=== PATIENT | female | born 1985 | race Caucasian/White ===

== ENCOUNTER 2020-04-16 14:48 | Emergency (ER) | payer OTHER, SELFPAY ==
--- NOTE | ~2020-04-16 | CT_ITS ---
EXAMINATION: CT abdomen pelvis wo con EXAM DATE: 04/16/2020 16:01 INDICATION: Left-sided flank pain. TECHNIQUE: Spiral CT of the abdomen and pelvis was performed without contrast. Axial, coronal and sag ittal images were reviewed. The dose-length product (DLP) for this examination was 389.32 mGy-cm. T he exposure was tailored according to patient size (auto mA exposure control), and iterative reconstr uction (ASIR) was used as additional dose reduction technique. There is no prior study for compariso n. FINDINGS: There is 2 mm left mid calyceal stone. No ureteral stones or obstructive nephropathy. Punct ate 1 mm right inferior calyceal stone. The uterus is anteverted and morphologically normal. The b ladder is unremarkable. The liver, spleen, adrenal glands and pancreas are unremarkable. Gallbladde r is unremarkable. No biliary obstruction. There is no retroperitoneal or pelvic lymphadenopathy. There are arterial calcifications, arteriosclerosis. The appendix is normal. The stomach and small bowel are unremarkable. There is expected amount of c olonic stool. No free intraperitoneal gas. The heart is normal in size. There are no pericardial or pleural effusions. The lung bases are unremarkable. There are no osteoblastic or osteolytic les ions identified. IMPRESSION: 1. Punctate bilateral nephrolithiasis. 2. No hydronephrosis or other acute intra-abdominal findings. Reviewed, dictated and finalized at location A. L ORGAN PIPE MAKER
[2020-04-16 14:57] VITALS: BP 131/98; PULSE 80; RESP 14; TEMP 36.3; O2SAT 98
[2020-04-16 15:05] LABS: Add Urine Microscopic? YES; Appearance Urine Clear (Clear); Bilirubin Urine Negative (Negative); Blood Urine Negative (Negative); Color Urine Yellow (Yellow); Glucose Urine UA Negative (Negative); Ketones Urine Negative (Negative); Leukocyte Esterase Ur Negative (Negative); Nitrate Urine Negative (Negative); Protein Urine Trace (Negative); Specific Grav Ur 1.025 (1.010-1.020); Urobilinogen Urine 0.2 mg/dL (0.2-1.0)
--- NOTE | 2020-04-16 15:15 | ED.GENADULT ---
HPI - General Adult General Chief complaint: Urogenital-Female Stated complaint: UTI Time Seen by Provider: 04/16/20 14:55 Source: patient Mode of arrival: ambulatory Limitations: no limitations History of Present Illness HPI narrative: Mirna is a 35F with a PMH of recurrent UTI, kidney stones and mood disorder that presented to the ED for concerns of a UTI. Starting a few days ago she had nausea and dry heaving. Later she developed hematuria and dysuria. Today she started to have back pain. It feels like her previous UTIs. It does not feel like her previous stones. She also reports constipation. No fevers, chills, CP, SOB, lightheadedness, hematemesis or anuria. Related Data Home Medications Medication Instructions Recorded Confirmed lorazepam [Ativan] 1 mg PO DAILY PRN 03/13/19 04/16/20 sertraline [Zoloft] 100 mg PO DAILY 03/13/19 04/16/20 tramadol 50 mg PO DAILY 03/13/19 04/16/20 Allergies Allergy/AdvReac Type Severity Reaction Status Date / Time ethinyl estradiol Allergy Intermediate Verified 09/16/18 12:47 [Seasonale (91)] levonorgestrel Allergy Intermediate Verified 09/16/18 12:47 [Seasonale (91)] Review of Systems Constitutional: Constitutional: Denies chills, Reports fatigue and Denies fever(s) Eyes: Eyes: Reports no additional eye complaints ENT: Reports system reviewed and no additional complaints, except as documented Cardiovascular: Cardiovascular: Reports no additional cardiovascular complaints Respiratory: Respiratory: Reports no additional respiratory complaints Gastrointestinal: Gastrointestinal: Reports as per HPI Genitourinary: Genitourinary: Reports as per HPI Musculoskeletal: Musculoskeletal: Reports no additional musculoskeletal complaints Integumentary/Breasts: Skin/Breast: Reports system reviewed and no additional complaints, except as docu Neurologic: Reports system reviewed and no additional complaints, except as documented Psychiatric: Psychiatric: Reports no additional psychiatric complaints Endocrine: Endocrine: Reports no additional endocrine complaints Hematologic/Lymphatic: Hematologic/Lymphatic: Reports no additional hematologic/lymphatic complaints Allergic/Immunologic: Allergic/Immunologic: Reports no additional allergic/immunologic complaints PMFSH Social History Social History Smoking status: Current every day smoker Exam Const: General: no acute distress and alert Orientation/consciousness: patient oriented x3 Limitations: No altered mental status HENMT: Head: normal to inspection Eyes: Conjunctivae: conjunctivae normal Pupils: Equal, round and reactive pupils present Neck: Neck: normal visual inspection Chest: Chest palpation & inspection: normal inspection of the chest Resp: Effort & Inspection: normal respiratory effort Cardio: Rate: regular rate GI: Inspection: non-distended GI Palp: Yes Soft to palpation, No Tenderness to palpation present (GI) and No Guarding due to palpation present (GI) : Other: Bilateral CVA tenderness. Suprapubic tenderness Skin: General skin exam: normal color Rashes: no rashes Neuro: General: patient oriented x3 and moves all extremities Extrem: General: normal to inspection Psych: Appearance: grossly normal Mental Status: mental status grossly normal Thought content: Yes Normal thought content present Course Course Emergency Course: Mirna was evaluated. UA was ordered. UA was unremarkable for infection. Given this workup was expanded and a CT and blood work were ordered. An enema was ordered as she reports that she has not had a BM for 5 days. EXAMINATION: CT abdomen pelvis wo con EXAM DATE: 04/16/2020 16:01 INDICATION: Left-sided flank pain. TECHNIQUE: Spiral CT of the abdomen and pelvis was performed without contrast. Axial, coronal and sagittal images were reviewed. The dose-length product (DLP) for this examination was 389.32 mGy-cm. The exposure was tailored according to pat
[2020-04-16 15:18] LABS: Bacteria Urine 2+ /hpf; RBC Urine 0-2 /hpf (0-2); Squamous Epithelial Cell Urine Many /hpf (Few)
[2020-04-16 15:46] LABS: Pregnancy On Board Control Positive; Urine Pregnancy Test Negative
[2020-04-16 15:55] LABS: Basophils Absolute Auto 0.02 K/mm3 (0.00-0.10); Basophils Percent Auto 0.3 % (0.0-1.0); Eosinophils Absolute Auto 0.09 K/mm3 (0.02-0.50); Eosinophils Percent Auto 1.3 % (1.0-6.0); Hematocrit 40.8 % (35.0-49.0); Hemoglobin 13.3 g/dL (12.0-15.0); Immature Granulocyte Absolute 0.02 K/mm3 (0.00-0.00); Immature Granulocyte Percent A 0.3 % (0.0-0.0); Lymphocytes Absolute Auto 1.45 K/mm3 (1.10-4.50); Lymphocytes Percent Auto 21.7 % (18.0-42.0); Mean Corpuscular HGB Conc 32.6 g/dL (32.0-36.0); Mean Corpuscular Hemoglobin 30.4 pg (27.0-31.0); Mean Corpuscular Volume 93.2 fL (78.0-102.0); Mean Platelet Volume 9.9 fl (9.2-11.8); Monocytes Absolute Auto 0.49 K/mm3 (0.10-0.90); Monocytes Percent Auto 7.3 % (2.0-11.0); Neutrophils Absolute Auto 4.6 K/mm3 (1.7-7.2); Neutrophils Percent Auto 69.1 % (50.0-70.0); Platelet Count Result 262 K/mm3 (150-420); Red Blood Count 4.38 M/mm3 (4.20-5.40); Red Cell Distribution Width 14.2 % (11.6-14.4); White Blood Count 6.7 K/mm3 (4.8-10.8)
[2020-04-16 16:03] LABS: Alanine Aminotransferase 34 U/L (14-59); Albumin Level 3.8 g/dL (3.4-5.0); Alkaline Phosphatase 72 U/L (46-116); Anion Gap 8 mmol/L (8-16); Aspartate Amino Transferase 22 U/L (15-37); Bilirubin,Total 0.3 mg/dL (0.00-1.00); Blood Urea Nitrogen 18 mg/dL (7-18); Carbon Dioxide 25 mmol/L (21-32); Chloride 101 mmol/L (98-108); Estimated CRCL calculation 78 ml/min; Estimated Glomerular Filt Rate > 60; Glucose 93 mg/dL (70-99); Lipase 72 U/L (73-393); Osmolality Calculated 279 mOsm/kg (285-295); Potassium 3.6 mmol/L (3.5-5.1); Sodium 134 mmol/L (136-145); Total Protein 7.7 g/dL (6.4-8.2)
[2020-04-16 16:29] VITALS: RESP 15; O2SAT 100
== END 2020-04-16 16:30 | disposition home or self-care (01) ==
PROVIDERS: Emergency Provider Family Medicine; PCP Family Medicine
DX: N20.0 Calculus of kidney (principal)
CPT/HCPCS: 36415; 74176; 80053; 81001; 81025; 83690; 85025; 99282; 99284

== ENCOUNTER 2021-11-28 17:16 | Emergency (ER) | payer OTHER, SELFPAY ==
--- NOTE | ~2021-11-28 | CT_ITS ---
EXAMINATION: CT brain wo con DATE: 11/28/2021 18:07 INDICATION: head injury dizziness . TECHNIQUE: Computed tomography (CT) of the head was performed without intravenous contrast. The mA wa s adjusted according to patient size. Iterative reconstruction technique was employed. The dose-lengt h product was 605.33 mGy-cm. COMPARISON: None FINDINGS: No acute intracranial hemorrhage or extra-axial fluid collection. No hydrocephalus, mass, or herniation. No acute ischemic infarct. Unremarkable dural venous sinus attenuation. No acute osseous abnormality. The aerated spaces are clear. IMPRESSION: No acute intracranial process. Reviewed, dictated and finalized at location K.
--- NOTE | ~2021-11-28 | XR_ITS ---
EXAM: XR shoulder LT min 2V DATE: 11/28/2021 17:57 HISTORY: shoulder pain . COMPARISON: X-ray chest 03/13/2019. FINDINGS: Normal mineralization. No fracture or dislocation. No lytic or blastic lesion. Joint space s are maintained. No erosion or periosteal change. Soft tissues within normal limits. Left upper lung granuloma. IMPRESSION: No acute osseous finding the left shoulder. Reviewed, dictated and finalized at location K.
[2021-11-28 17:24] VITALS: BP 121/86; PULSE 98; RESP 18; TEMP 36.7; O2SAT 98
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
[2021-11-28] MEDS: KETOROLAC 30 MG/ML VIAL (*BKC) IM (17:43)
--- NOTE | 2021-11-28 18:28 | PC.NURSE ---
PT TO POV TO GET PHONE VERIFICATION ENGINEER AT THIS TIME.
[2021-11-28 19:01] VITALS: BP 118/78; PULSE 80; RESP 16; TEMP 36.7; O2SAT 98
--- NOTE | 2021-11-28 19:01 | PC.NURSE ---
+PMS POST SLING APPLICATION
== END 2021-11-28 19:00 | disposition home or self-care (01) ==
PROVIDERS: Emergency Provider Internal Medicine Critical Care Medicine
DX: S43.402A Unspecified sprain of left shoulder joint, initial encounter (principal); S09.90XA Unspecified injury of head, initial encounter; W19.XXXA Unspecified fall, initial encounter
CPT/HCPCS: 70450; 73030; 96372; 99284; A4565; J1885

== ENCOUNTER 2022-03-08 02:09 | Emergency (ER) | payer OTHER, SELFPAY ==
--- NOTE | ~2022-03-08 | CT_ITS ---
EXAMINATION: CT abdomen pelvis wo con DATE: 03/08/2022 03:07 INDICATION: Difficulty urinating TECHNIQUE: Computed tomography (CT) of the abdomen and pelvis was performed without intravenous contr ast. The dose-length product (DLP) was 171.44 mGy-cm. Automated exposure control and iterative recons truction technique were employed. COMPARISON: 04/16/2020 FINDINGS: The lung bases are clear. The heart size is normal. Punctate calcifications in an otherwise normal spleen likely represent healed granulomatous disease. The liver, pancreas, gallbladder, and a drenal glands are normal. Nonobstructing stones of the left kidney measure up to 3 mm. There is a 2 m m nonobstructing stone of the right kidney lower pole. No stones are identified in the ureters or shirlene dder. There is no hydronephrosis or hydroureter. There is calcified atherosclerosis of the aorta and many of the other arteries. No pathologically enlarged abdominal or pelvic lymph nodes are identified . There is no free intraperitoneal gas or evidence of bowel obstruction. A moderate volume of colonic stool is present. There is mild lumbar spondylosis. IMPRESSION: 1. Nonobstructing bilateral nephrolithiasis. Reviewed, dictated and finalized at location B. LEVELER
[2022-03-08 02:14] VITALS: BP 129/70; PULSE 86; RESP 20; TEMP 36.4; O2SAT 99
--- NOTE | 2022-03-08 02:24 | ED.GENADULT ---
HPI - General Adult General Chief complaint: Urogenital-Female Stated complaint: uti History of Present Illness HPI narrative: Mirna is a 35F with a PMH of recurrent UTI, kidney stones and mood disorder that presented to the ED with a week of bilateral flank pain that radiates down into her pelvis. It is getting worse over the last week and is accompanied by dysuria, hematuria, and nausea. There is no CP, vomiting, syncope, SOB, fevers, chills or vaginal discharge. Related Data Home Medications Medication Instructions Recorded Confirmed No Home Medications 03/08/22 03/08/22 Allergies Allergy/AdvReac Type Severity Reaction Status Date / Time ethinyl estradiol Allergy Intermediate Unknown Verified 11/28/21 17:29 [Seasonale (91)] levonorgestrel Allergy Intermediate Unknown Verified 11/28/21 17:29 [Seasonale (91)] Review of Systems Review of Systems: All systems reviewed & are unremarkable except as noted in HPI and below PMFSH Social History Social History Smoking status: Current every day smoker Exam Const: General: healthy appearing and no acute distress Nutritional Appearance: well nourished Orientation/consciousness: patient oriented x3 HENMT: Head: normal to inspection Ears: external ears normal Face/Nose/Sinus: Normal external nose present Eyes: Conjunctivae: conjunctivae normal Pupils: Equal, round and reactive pupils present Neck: Neck: normal visual inspection Chest: Chest palpation & inspection: normal inspection of the chest Resp: Effort & Inspection: normal respiratory effort Auscultation: clear to auscultation bilaterally Cardio: Rate: regular rate Rhythm: regular rhythm GI: Other: Mild TTP throughout the abdomen but worse in the suprapubic region. Bowel sounds present. No guarding or rebound tenderness. : Other: bilateral CVA tenderness Skin: General skin exam: normal color Neuro: General: patient oriented x3 and moves all extremities Extrem: General: normal to inspection Psych: Mental Status: mental status grossly normal Course Course Emergency Course: CT showed no hydroureteronephrosis. Tinry right loewr pole non-obstructing intrarenal calculus. Further history revealed that she has been quite constipated and last BM was early yesterday Vital Signs Vital signs: Vital Signs Temperature 97.5 F L 03/08/22 02:14 Pulse Rate 86 03/08/22 02:14 Respiratory Rate 20 03/08/22 02:14 Blood Pressure 129/70 03/08/22 02:14 Pulse Oximetry 99 03/08/22 02:14 Oxygen Delivery Room Air 03/08/22 02:14 Temperature 97.9 F 03/08/22 03:33 Pulse Rate 71 03/08/22 03:33 Respiratory Rate 18 03/08/22 03:33 Blood Pressure 120/74 03/08/22 03:33 Pulse Oximetry 99 03/08/22 03:33 Oxygen Delivery BiPAP 03/08/22 03:33 Medical Decision Making Vital Signs Vital Signs: Vital Signs Temperature 97.5 F L 03/08/22 02:14 Pulse Rate 86 03/08/22 02:14 Respiratory Rate 20 03/08/22 02:14 Blood Pressure 129/70 03/08/22 02:14 Pulse Oximetry 99 03/08/22 02:14 Oxygen Delivery Room Air 03/08/22 02:14 Temperature 97.9 F 03/08/22 03:33 Pulse Rate 71 03/08/22 03:33 Respiratory Rate 18 03/08/22 03:33 Blood Pressure 120/74 03/08/22 03:33 Pulse Oximetry 99 03/08/22 03:33 Oxygen Delivery BiPAP 03/08/22 03:33 Lab Data Result diagrams: 03/08/22 02:28 03/08/22 02:28 Labs: Lab Results 03/08/22 03/08/22 03/08/22 Range/Units 02:28 02:28 02:28 WBC 10.3 (4.8-10.8) K/mm3 RBC 4.09 L (4.20-5.40) M/mm3 Hgb 12.4 (12.0-15.0) g/dL Hct 38.7 (35.0-49.0) % MCV 94.6 (78.0-102.0) fL MCH 30.3 (27.0-31.0) pg MCHC 32.0 (32.0-36.0) g/dL RDW 14.3 (11.6-14.4) % Plt Count 261 (150-420) K/mm3 MPV 9.9 (9.2-11.8) fl Immature Gran % (Auto) 0.4 H (0.0-0.0) % Neut % (Auto) 68.9
[2022-03-08 02:32] LABS: Appearance Urine Clear (Clear); Basophils Absolute Auto 0.04 K/mm3 (0.00-0.10); Basophils Percent Auto 0.4 % (0.0-1.0); Bilirubin Urine Negative (Negative); Blood Urine Negative (Negative); Eosinophils Absolute Auto 0.11 K/mm3 (0.02-0.50); Eosinophils Percent Auto 1.1 % (1.0-6.0); Glucose Urine UA Negative (Negative); Hematocrit 38.7 % (35.0-49.0); Hemoglobin 12.4 g/dL (12.0-15.0); Immature Granulocyte Absolute 0.04 K/mm3 (0.00-0.00); Immature Granulocyte Percent A 0.4 % (0.0-0.0); Ketones Urine Negative (Negative); Leukocyte Esterase Ur Trace (Negative); Lymphocytes Absolute Auto 2.35 K/mm3 (1.10-4.50); Lymphocytes Percent Auto 22.8 % (18.0-42.0); Mean Corpuscular Hemoglobin 30.3 pg (27.0-31.0); Mean Corpuscular Volume 94.6 fL (78.0-102.0); Mean Platelet Volume 9.9 fl (9.2-11.8); Monocytes Absolute Auto 0.66 K/mm3 (0.10-0.90); Monocytes Percent Auto 6.4 % (2.0-11.0); Neutrophils Absolute Auto 7.1 K/mm3 (1.7-7.2); Neutrophils Percent Auto 68.9 % (50.0-70.0); Nitrate Urine Negative (Negative); Platelet Count Result 261 K/mm3 (150-420); Protein Urine Negative (Negative); Red Blood Count 4.09 M/mm3 (4.20-5.40); Red Cell Distribution Width 14.3 % (11.6-14.4); Urobilinogen Urine 0.2 mg/dL (0.2-1.0); White Blood Count 10.3 K/mm3 (4.8-10.8)
[2022-03-08] MEDS: SODIUM CHLORIDE 0.9% IV 1,000 ML 999 ML IV CONT (02:35)
[2022-03-08 02:39] LABS: Add Urine Microscopic? YES; Bacteria Urine Trace /hpf; Color Urine Light Yellow (Yellow); RBC Urine 0-2 /hpf (0-2); Squamous Epithelial Cell Urine Few /hpf (Few); WBC Urine 0-3 /hpf (0-3)
[2022-03-08 02:40] LABS: Pregnancy On Board Control Positive; Urine Pregnancy Test Negative
[2022-03-08] MEDS: KETOROLAC 30 MG/ML VIAL (*BKC) IV PUSH (02:42)
[2022-03-08] MEDS: ONDANSETRON INJ 4 MG/2 ML VIAL IV PUSH (02:42)
[2022-03-08] MEDS: MORPHINE SULFATE (*CRX) 4 MG/ML INJ IV PUSH (02:43)
[2022-03-08 02:47] LABS: Alanine Aminotransferase 17 U/L (14-59); Albumin Level 3.5 g/dL (3.4-5.0); Alkaline Phosphatase 62 U/L (46-116); Anion Gap 8 mmol/L (8-16); Aspartate Amino Transferase 11 U/L (15-37); Bilirubin,Total 0.2 mg/dL (0.00-1.00); Blood Urea Nitrogen 13 mg/dL (7-18); Calcium 8.5 mg/dL (8.5-10.1); Carbon Dioxide 28 mmol/L (21-32); Chloride 106 mmol/L (98-108); Estimated CRCL calculation 72 ml/min; Estimated Glomerular Filt Rate > 60; Glucose 109 mg/dL (70-99); Lipase 105 U/L (73-393); Osmolality Calculated 295 mOsm/kg (285-295); Potassium 3.7 mmol/L (3.5-5.1); Sodium 142 mmol/L (136-145); Total Protein 6.7 g/dL (6.4-8.2)
[2022-03-08 03:33] VITALS: BP 120/74; PULSE 71; RESP 18; TEMP 36.6; O2SAT 99
== END 2022-03-08 03:39 | disposition home or self-care (01) ==
PROVIDERS: Emergency Provider Family Medicine
DX: K59.00 Constipation, unspecified (principal)
CPT/HCPCS: 36415; 74176; 80053; 81001; 81025; 83690; 85025; 96361; 96374; 96375; 99284; J1885; J2270; J2405; J7030

== ENCOUNTER 2022-03-24 00:20 | Emergency (ER) | payer OTHER, SELFPAY ==
[2022-03-24] VITALS (7 sets, daily range): BP systolic 120–130; BP diastolic 88–89; PULSE 88–92; RESP 18–20; TEMP 37–37.2; O2SAT 96–99
--- NOTE | ~2022-03-24 | XR_ITS ---
XR shoulder LT min 2V DATE: 03/24/2022 01:09 INDICATION: Left shoulder pain for several months TECHNIQUE: 4 views COMPARISON: 11/28/2021 left shoulder FINDINGS: No fracture or dislocation, periosteal reaction or bone destruction or abnormal soft tissue calcification of the left shoulder. IMPRESSION: Negative Reviewed, dictated and finalized at location A. NESS BANKING REPRESENTATIVE IMPRESSION: Negative
--- NOTE | ~2022-03-24 | XR_ITS ---
XR chest 2V DATE: 03/24/2022 01:09 INDICATION: Shortness of breath for one day TECHNIQUE: PA and lateral views COMPARISON: 03/13/2019 portable AP chest FINDINGS: Normal heart size. No hilar or mediastinal enlargement. 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 No pulmonary infiltrate or consolidation, pleural effusion or pulmonary vascular congestion or pneumo thorax. IMPRESSION: No active cardiopulmonary disease Reviewed, dictated and finalized at location A. ITAL INSURANCE CLERK
--- NOTE | 2022-03-24 00:33 | PC.NURSE ---
old records from fall in november retrieved
--- NOTE | 2022-03-24 00:45 | ECG_ITS ---
Measurements Intervals [place] Rate: 90 P: 40 MO: 127 QRS: 57 QRSD: 85 T: 55 QT: 348 QTc: 426 Interpretive Statements SINUS RHYTHM POSSIBLE LEFT ATRIAL ENLARGEMENT BASELINE ARTIFACT- I, III, AVR, AVL, V1 BORDERLINE ECG NO PREVIOUS ECG AVAILABLE FOR COMPARISON Electronically Signed On 03-24-2022 10:02:38 APPOINTMENT CLERK by Jase Mcghee D.O.
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
[2022-03-24 01:02] LABS: Hemoglobin 13.4 g/dL (12.0-15.0); Mean Corpuscular HGB Conc 32.7 g/dL (32.0-36.0); Mean Corpuscular Hemoglobin 30.4 pg (27.0-31.0); Platelet Count Result 311 K/mm3 (150-420); Red Blood Count 4.41 M/mm3 (4.20-5.40); Red Cell Distribution Width 14.1 % (11.6-14.4); White Blood Count 13.5 K/mm3 (4.8-10.8)
[2022-03-24] MEDS: ALBUTEROL SULFATE NEB 2.5 MG/3 ML INH INHALATION ×2 (01:15→01:53)
[2022-03-24 01:16] LABS: D Dimer 0.46 mg/L (0.19-0.50)
[2022-03-24 01:25] LABS: Alanine Aminotransferase 15 U/L (14-59); Albumin Level 3.9 g/dL (3.4-5.0); Alkaline Phosphatase 83 U/L (46-116); Anion Gap 7 mmol/L (8-16); Aspartate Amino Transferase < 10 U/L (15-37); Bilirubin,Total 0.5 mg/dL (0.00-1.00); Blood Urea Nitrogen 18 mg/dL (7-18); Calcium 9.8 mg/dL (8.5-10.1); Carbon Dioxide 31 mmol/L (21-32); Chloride 102 mmol/L (98-108); Estimated CRCL calculation 70 ml/min; Estimated Glomerular Filt Rate > 60; Glucose 101 mg/dL (70-99); Osmolality Calculated 291 mOsm/kg (285-295); Sodium 140 mmol/L (136-145); Total Protein 8.1 g/dL (6.4-8.2); Troponin I 5.3 ng/L (0.00-60.4)
[2022-03-24] MEDS: KETOROLAC 30 MG/ML VIAL (*BKC) IM (01:26)
[2022-03-24 01:38] LABS: Influenza A QL RT-PCR Negative (Negative); Influenza B QL RT-PCR Negative (Negative); SARS-CoV-2 RNA PCR Negative (Negative)
[2022-03-24 01:39] LABS: RSV RNA, RT-PCR Negative (Negative)
[2022-03-24] MEDS: LORazepam (*CRX) 1 MG TABLET PO (02:00)
--- NOTE | 2022-03-24 02:02 | PC.NURSE ---
while administering ativan patient states I need strong pain medication, not torodal or motrin. Concrete Block Molder said ok, I will let MD come see you & discuss
== END 2022-03-24 02:30 | disposition home or self-care (01) ==
PROVIDERS: Emergency Provider Emergency Medicine
DX: J45.909 Unspecified asthma, uncomplicated (principal); F41.9 Anxiety disorder, unspecified; R07.9 Chest pain, unspecified; Z20.822 Contact with and (suspected) exposure to COVID-19
CPT/HCPCS: 36415; 71046; 73030; 80053; 84484; 85027; 85380; 87637; 93005; 94640; 96372; 99284; A9270; J1885

== ENCOUNTER 2022-04-05 01:16 | Emergency (ER) | payer OTHER, SELFPAY ==
[2022-04-05 01:16] VITALS: BP 137/90; PULSE 90; RESP 20; TEMP 37.2; O2SAT 96
--- NOTE | 2022-04-05 01:21 | ED.EPISTAXIS ---
HPI - Epistaxis General Chief complaint: Epistaxis Stated complaint: Nose Bleed Source: patient and RN notes reviewed Mode of arrival: ambulatory Limitations: no limitations History of Present Illness HPI Narrative: Patient states that she has had some off and on nosebleeds for the last 4-5 days. She has been getting them. I pinch her nose and eventually it stops but she leans her head back and the blood present on the back with throat she spits up clots. She says she has been having some anxiety and then she has a nose bleed. She also feels like she is having some off and on dizzy spells. She was here just 4 days ago and had a normal hemoglobin. MD complaint: epistaxis Location: left nostril Onset (ago): day(s) (4-5) Duration: intermittent Treatment prior to arrival: nose pinching and head tilted back Related Data Allergies Allergy/AdvReac Type Severity Reaction Status Date / Time ethinyl estradiol Allergy Intermediate Unknown Verified 04/03/22 07:12 [Seasonale (91)] levonorgestrel Allergy Intermediate Unknown Verified 04/03/22 07:12 [Seasonale (91)] Review of Systems Review of Systems: All systems reviewed & are unremarkable except as noted in HPI and below Neurologic: Reports dizziness PMFSH Past Medical History Medical History (Updated 04/05/22 @ 01:42 by Robbie Barajas MD) Kidney stones Surgical History Surgical History (Updated 04/05/22 @ 01:37 by Robbie Barajas MD) H/O cystoscopy kidney stone removal Social History Social History Smoking status: Current every day smoker Exam Const: General: healthy appearing, no acute distress and alert Nutritional Appearance: well nourished Orientation/consciousness: patient oriented x3 Limitations: no limitations Other: female nurse in room during examination. HENMT: Head: normal to inspection Ears: external ears normal Face/Nose/Sinus: Epistaxis present on the left anterior source Face and sinus: normal facial exam Mouth: Yes moist mucous membranes Throat: posterior oropharynx normal and uvula midline Eyes: Conjunctivae: conjunctivae normal Pupils: Equal, round and reactive pupils present EOM: EOMs intact bilaterally Neck: Neck: normal visual inspection Resp: Effort & Inspection: normal respiratory effort Auscultation: clear to auscultation bilaterally Cardio: Rate: regular rate Rhythm: regular rhythm GI: GI Palp: Yes Soft to palpation and No Tenderness to palpation present (GI) Auscultation: normal bowel sounds Back/Spine/Pelvis: Cervical Spine: cervical ROM normal Thoracic/Lumbar Spine: thoraco-lumbar ROM normal Skin: General skin exam: normal color Rashes: no rashes Neuro: General: patient oriented x3, moves all extremities, no focal motor deficits and CN's II-XI intact bilaterally Speech: normal speech Gait exam (Neuro): Normal gait present Extrem: General: normal to inspection and no clubbing, cyanosis or edema Psych: Mental Status: mental status grossly normal Affect: normal affect Attitude: cooperative Course Course Emergency Course: Patient asked why she is dizzy I offered her blood work consisting of a CBC and she declined. She said that her hemoglobin was normal just 4 days ago when she was here Procedures Epistaxis Control left: Epistaxis Control Date: 04/05/22 Time Out Performed: Yes Direct Inspection: yes Cautery Used: silver nitrate Patient Tolerated Procedure: no complications Discharge Plan Discharge Clinical Impression: Epistaxis Patient Disposition: Home, Self-Care Condition: Improved Instructions: Nosebleed (ED) Additional Instructions: Use NasoGel small amount every evening on the septum both sides of the nose. Follow-up with your primary care any worsening symptoms. Prescriptions: No Action Proair Digihaler 90 mcg/actuation aero powdr breath act w/sensor 2 inh inhalation QID
[2022-04-05] MEDS: SILVER NITRATE (*SP) STICK 5 EACH (01:41)
[2022-04-05 02:07] VITALS: BP 140/80; PULSE 80; RESP 20; TEMP 36.6; O2SAT 96
== END 2022-04-05 02:00 | disposition home or self-care (01) ==
PROVIDERS: Emergency Provider Emergency Medicine; PCP Family Medicine
DX: R04.0 Epistaxis (principal)
CPT/HCPCS: 30901; 99283

== ENCOUNTER 2022-05-11 20:52 | Emergency (ER) | payer OTHER, SELFPAY ==
--- NOTE | ~2022-05-11 | CT_ITS ---
EXAMINATION: CT abdomen pelvis w con DATE: 05/11/2022 22:28 INDICATION: Lower abdominal pain. History of kidney stones. TECHNIQUE: Computed tomography (CT) of the abdomen and pelvis was performed with 100 CC Omnipaque 350 intravenous contrast. Automated exposure control and iterative reconstruction technique were employe d. Exam dose: 438.43 mGy-cm total exam DLP. COMPARISON: 03/08/2022 CT abdomen pelvis FINDINGS: Calcified right upper lobe pulmonary granuloma. The lung bases are clear of infiltrate or c onsolidation. Normal heart size. No pericardial or pleural effusion. The gallbladder is contracted. No pericholecystic fluid or fat stranding. No bile duct or pancreatic duct dilatation. No hepatic or pancreatic or splenic space-occupying mass lesion. Occasional splenic calcified granulomas. Normal morphology of the adrenal glands. 5 mm upper pole right renal cyst Pinpoint nonobstructing lower pole right renal calculus. 8 mm upper pole left renal cyst. There are a couple of 3 mm smaller left renal calculi.. No ureteral calculus or hydroureteronephrosis. The urinary bladder appears normal. Bilateral prominent adnexal vessels which may be due to pelvic venous congestion. Uterus and adnexal areas are otherwise unremarkable. Normal caliber of the abdominal aorta. No intraperitoneal or retroperitoneal or pelvic mass lesion or adenopathy or ascites. There are nondilated fluid containing small bowel segments. No evidence of appendicitis. There is a p rominent amount of fecal material in the colon but no bowel obstruction is evident. Electronically prominent degenerative disc disease at L5-S1. No suspicious osteolytic or osteoblastic lesions are noted. IMPRESSION: Nonobstructive mild bilateral nephrolithiasis No ureteral calculus or hydroureteronephrosis Normal appendix Reviewed, dictated and finalized at [facility]. Reviewed, dictated and finalized at [facility]. [employer]
[2022-05-11 21:06] VITALS: BP 119/68; PULSE 90; RESP 20; TEMP 36.9; O2SAT 96
--- NOTE | 2022-05-11 21:10 | ED.GENADULT ---
HPI - General Adult General Chief complaint: Unspecified Stated complaint: sharp stomach pains down to knees and up back Related Data Allergies Allergy/AdvReac Type Severity Reaction Status Date / Time ethinyl estradiol Allergy Intermediate Unknown Verified 04/06/22 07:48 [Seasonale (91)] levonorgestrel Allergy Intermediate Unknown Verified 04/06/22 07:48 [Seasonale (91)] PMFSH Past Medical History Medical History Kidney stones Surgical History Surgical History H/O cystoscopy kidney stone removal Social History Social History Smoking status: Current every day smoker Discharge Plan Discharge Prescriptions: No Action Proair Digihaler 90 mcg/actuation aero powdr breath act w/sensor 2 inh inhalation QID 10 Days Qty: 1 0RF Rx Instructions: 2 puffs 4 times a day for 10 days Follow-up/Referrals: Casey Hutson DO [Primary Care Provider] -
--- NOTE | 2022-05-11 21:17 | ED.ABDPAIN ---
HPI - Abdominal Pain General Chief Complaint: Unspecified Stated Complaint: sharp stomach pains down to knees and up back Source: patient Mode of arrival: ambulatory Limitations: no limitations History of Present Illness HPI narrative: 37-year-old female, smoker with a history of constipation, chronic bronchitis presents to the ER with a 2 day history of -- lower abdominal pain. No fever. No nausea /vomiting. No dysuria. The patient is constipated. -- Back pain/neck pain MD elicited complaint: abdominal pain Pertinent past history: constipation Onset (ago): day(s) ( started 2 days ago) Pain Consistency: constant Location: diffuse Severity: moderate Quality: aching Radiation: none Migration to: no migration Exacerbating factors: nothing Relieving factors: nothing Associated symptoms: denies other symptoms Related Data Date of Last Menstrual Period: 04/07/22 Patient : No Allergies Allergy/AdvReac Type Severity Reaction Status Date / Time ethinyl estradiol Allergy Intermediate Unknown Verified 04/06/22 07:48 [Seasonale (91)] levonorgestrel Allergy Intermediate Unknown Verified 04/06/22 07:48 [Seasonale (91)] Review of Systems Review of Systems: All systems reviewed & are unremarkable except as noted in HPI and below Constitutional: Constitutional: Reports as per HPI and Reports no additional constitutional complaints Eyes: Eyes: Reports as per HPI and Reports no additional eye complaints ENT: Reports system reviewed and no additional complaints, except as documented and Reports as per HPI Cardiovascular: Cardiovascular: Reports as per HPI and Reports no additional cardiovascular complaints Respiratory: Respiratory: Reports as per HPI, Reports no additional respiratory complaints and Reports cough Gastrointestinal: Gastrointestinal: Reports as per HPI, Reports no additional gastrointestinal complaints, Reports abdominal pain and Reports constipation Genitourinary: Genitourinary: Reports no additional female genitourinary complaints and Reports as per HPI Musculoskeletal: Musculoskeletal: Reports no additional musculoskeletal complaints and Reports back pain Integumentary/Breasts: Skin/Breast: Reports system reviewed and no additional complaints, except as docu and Reports as per HPI Neurologic: Reports system reviewed and no additional complaints, except as documented and Reports as per HPI Psychiatric: Psychiatric: Reports no additional psychiatric complaints and Reports as per HPI Endocrine: Endocrine: Reports no additional endocrine complaints and Reports as per HPI Hematologic/Lymphatic: Hematologic/Lymphatic: Reports no additional hematologic/lymphatic complaints and Reports as per HPI Allergic/Immunologic: Allergic/Immunologic: Reports no additional allergic/immunologic complaints and Reports as per HPI [facility] Past Medical History Medical History Kidney stones Surgical History Surgical History H/O cystoscopy kidney stone removal Social History Social History Smoking status: Current every day smoker Exam Const: General: no acute distress Nutritional Appearance: well nourished Orientation/consciousness: patient oriented x3 Limitations: no limitations HENMT: Head: normal to inspection Ears: external ears normal Face/Nose/Sinus: Normal external nose present Face and sinus: normal facial exam Mouth: Yes Normal oral and palatal mucosa present Throat: posterior oropharynx normal Eyes: Conjunctivae: conjunctivae normal Pupils: Equal, round and reactive pupils present EOM: EOMs intact bilaterally Direct Ophthalmoscopy: no photophobia Neck: Neck: normal visual inspection, no lymphadenopathy and no meningeal signs Chest: Chest palpation & inspection: normal inspection of the chest Resp: Effort & Inspection:
[2022-05-11 21:32] LABS: Basophils Absolute Auto 0.04 K/mm3 (0.00-0.10); Basophils Percent Auto 0.3 % (0.0-1.0); Eosinophils Absolute Auto 0.03 K/mm3 (0.02-0.50); Eosinophils Percent Auto 0.2 % (1.0-6.0); Hematocrit 38.7 % (35.0-49.0); Hemoglobin 12.5 g/dL (12.0-15.0); Immature Granulocyte Absolute 0.08 K/mm3 (0.00-0.00); Immature Granulocyte Percent A 0.5 % (0.0-0.0); Lymphocytes Absolute Auto 1.88 K/mm3 (1.10-4.50); Mean Corpuscular HGB Conc 32.3 g/dL (32.0-36.0); Mean Platelet Volume 10.5 fl (9.2-11.8); Monocytes Absolute Auto 0.91 K/mm3 (0.10-0.90); Monocytes Percent Auto 5.8 % (2.0-11.0); Neutrophils Absolute Auto 12.8 K/mm3 (1.7-7.2); Neutrophils Percent Auto 81.2 % (50.0-70.0); Platelet Count Result 205 K/mm3 (150-420); Red Blood Count 4.16 M/mm3 (4.20-5.40); White Blood Count 15.7 K/mm3 (4.8-10.8)
[2022-05-11] MEDS: LACTATED RINGERS 1,000 ML 999 ML IV CONT (21:33)
[2022-05-11 21:47] LABS: INR 1.1; Partial Thromboplastin Time 31.1 SEC (23.90-30.70); Prothrombin Time 11.8 Seconds (9.50-12.10)
[2022-05-11 21:48] LABS: SPREG INTERNAL CONTROL Positive; Serum Qual hCG Negative
[2022-05-11 21:56] LABS: Alanine Aminotransferase 19 U/L (14-59); Albumin Level 3.4 g/dL (3.4-5.0); Alkaline Phosphatase 77 U/L (46-116); Anion Gap 7 mmol/L (8-16); Aspartate Amino Transferase 15 U/L (15-37); Bilirubin,Total 0.2 mg/dL (0.00-1.00); Blood Urea Nitrogen 9 mg/dL (7-18); Calcium 8.6 mg/dL (8.5-10.1); Carbon Dioxide 27 mmol/L (21-32); Chloride 97 mmol/L (98-108); Estimated CRCL calculation 86 ml/min; Estimated Glomerular Filt Rate > 60; Glucose 95 mg/dL (70-99); Lipase 23 U/L (16-77); Osmolality Calculated 270 mOsm/kg (285-295); Potassium 3.4 mmol/L (3.5-5.1); Sodium 131 mmol/L (136-145); Total Protein 7.4 g/dL (6.4-8.2); Troponin I < 4.0 ng/L (0.00-60.4)
[2022-05-11 22:00] VITALS: BP 120/66; PULSE 78; RESP 18; O2SAT 98
[2022-05-11 22:08] LABS: Lactic Acid Reflex 0.5 mmol/L (0.4-2.0)
[2022-05-11 22:20] LABS: Influenza A QL RT-PCR Negative (Negative); Influenza B QL RT-PCR Negative (Negative); SARS-CoV-2 RNA PCR Negative (Negative)
[2022-05-11 22:24] LABS: RSV RNA, RT-PCR Negative (Negative)
[2022-05-11] MEDS: ONDANSETRON INJ 4 MG/2 ML VIAL IV PUSH (22:31)
[2022-05-11] MEDS: MORPHINE SULFATE (*CRX) 2 MG/ML INJ IV PUSH (22:31)
[2022-05-11 22:38] LABS: Add Urine Microscopic? YES; Appearance Urine Clear (Clear); Bilirubin Urine Negative (Negative); Blood Urine Negative (Negative); Color Urine Light Yellow (Yellow); Glucose Urine UA Negative (Negative); Ketones Urine Negative (Negative); Leukocyte Esterase Ur Trace LEU/UL (Negative); Nitrate Urine Negative (Negative); Protein Urine Negative (Negative); Urobilinogen Urine 0.2 mg/dL (0.2-1.0)
[2022-05-11 22:40] LABS: Bacteria Urine Trace /hpf; RBC Urine 0-2 /hpf (0-2); Squamous Epithelial Cell Urine Rare /hpf (Few); WBC Urine 0-3 /hpf (0-3)
[2022-05-11 23:03] VITALS: BP 118/69; PULSE 80; RESP 18; TEMP 37.2; O2SAT 96
== END 2022-05-11 23:14 | disposition home or self-care (01) ==
PROVIDERS: Emergency Provider Internal Medicine Critical Care Medicine; PCP Family Medicine
DX: R10.30 Lower abdominal pain, unspecified (principal); M54.50 Low back pain, unspecified; K59.00 Constipation, unspecified; F17.200 Nicotine dependence, unspecified, uncomplicated; Z79.51 Long term (current) use of inhaled steroids; Z20.822 Contact with and (suspected) exposure to COVID-19
CPT/HCPCS: 36415; 74177; 80053; 81001; 83605; 83690; 84484; 84703; 85025; 85610; 85730; 87637; 96361; 96374; 96375; 99284; J2270; J2405; J7120; Q9967

== ENCOUNTER 2022-09-04 23:45 | Emergency (ER) | payer OTHER, SELFPAY ==
--- NOTE | ~2022-09-04 | XR_ITS ---
Supine views of the abdomen Clinical history: Constipation Findings: Bowel gas pattern is nonspecific. Moderate stool noted in the transverse colon. No evidence for obstruction or free air. No abnormal mass lesion or calcification is seen. Osseous structures ar e intact. Impression: Moderate stool in the transverse colon. Reviewed, dictated and finalized at location . Impression: Moderate stool in the transverse colon.
[2022-09-05 13:46] LABS: Occult Blood Negative (Negative)
== END 2022-09-05 02:10 | disposition home or self-care (01) ==
PROVIDERS: Emergency Provider Emergency Medicine
DX: K59.00 Constipation, unspecified (principal); F17.210 Nicotine dependence, cigarettes, uncomplicated; F41.9 Anxiety disorder, unspecified; F32.A Depression, unspecified; I10 Essential (primary) hypertension; Z86.73 Personal history of transient ischemic attack (TIA), and cerebral infarction without residual deficits
CPT/HCPCS: 74018; 82272; 99283

== ENCOUNTER 2022-10-22 09:29 | Emergency (ER) | payer OTHER, SELFPAY ==
--- NOTE | ~2022-10-22 | CT_ITS ---
EXAMINATION: CT abdomen pelvis wo con DATE: 10/22/2022 11:05 INDICATION: Left flank pain TECHNIQUE: Computed tomography (CT) of the abdomen and pelvis was performed without intravenous contr ast. The dose-length product (DLP) was 232.37 mGy-cm. Automated exposure control and iterative recons truction technique were employed. COMPARISON: 05/11/2022 FINDINGS: Small stable nodules of the visualized lung bases are consistent with old granulomatous dis ease. The heart size is normal. Punctate calcifications in an otherwise normal spleen likely represen t healed granulomatous disease. The liver, pancreas, gallbladder, and adrenal glands are normal. Jesus on artifact slightly limits evaluation of the upper abdomen. There is a 2 mm nonobstructing stone of the right kidney lower pole. Nonobstructing stones of the left kidney measure up to 3 mm. No stones a re identified in the ureters or bladder. No hydronephrosis or hydroureter. There is calcified atheros clerosis of the aorta and many of the other arteries, somewhat greater than expected for patient age. No pathologically enlarged abdominal or pelvic lymph nodes are identified. No free intraperitoneal g as or evidence of bowel obstruction. The appendix is normal. There is mild lumbar spondylosis. A mode rate volume of colonic stool is present. IMPRESSION: 1. Nonobstructing bilateral nephrolithiasis. Reviewed, dictated and finalized at location []
[2022-10-22 09:29] VITALS: BP 145/89; PULSE 96; RESP 18; TEMP 36.6; O2SAT 98
--- NOTE | 2022-10-22 09:53 | ED.GENADULT ---
HPI - General Adult General Chief complaint: Back Pain/Injury Stated complaint: back pain Time Seen by Provider: 10/22/22 09:52 History of Present Illness HPI narrative: Healthy 37yo woman history of constipation, recurrent UTIs, and kidney stones, presents with flank pain, left-sided, last 2 weeks. Also radiation into the buttocks and left thigh. No fever or vomiting. No black or bloody stool. Last BM yesterday, hard stools. Hard to initiate voiding of urine; no burning dysuria. Related Data Allergies Allergy/AdvReac Type Severity Reaction Status Date / Time ethinyl estradiol Allergy Intermediate Unknown Verified 10/22/22 09:39 [Seasonale (91)] levonorgestrel Allergy Intermediate Unknown Verified 10/22/22 09:39 [Seasonale (91)] Review of Systems Review of Systems: All systems reviewed & are unremarkable except as noted in HPI and below Constitutional: Constitutional: Denies fever(s) ENT: Denies dysphagia and Denies dizziness Cardiovascular: Cardiovascular: Denies chest pain Respiratory: Respiratory: Denies cough and Denies dyspnea PMF Past Medical History Medical History Kidney stones Surgical History Surgical History H/O cystoscopy kidney stone removal Social History Social History Smoking status: Current every day smoker Exam Const: General: healthy appearing and no acute distress Eyes: Conjunctivae: conjunctivae normal Resp: Effort & Inspection: normal respiratory effort and not labored Cardio: Rate: regular rate GI: Inspection: non-distended GI Palp: Yes Soft to palpation, No Tenderness to palpation present (GI) and No Guarding due to palpation present (GI) Skin: General skin exam: normal color, no jaundice and no pallor Extrem: General: no edema Course Vital Signs Vital signs: Vital Signs Temperature 36.6 C 10/22/22 09:29 Pulse Rate 96 10/22/22 09:29 Respiratory Rate 18 10/22/22 09:29 Blood Pressure 145/89 H 10/22/22 09:29 Pulse Oximetry 98 10/22/22 09:29 Oxygen Delivery Room Air 10/22/22 09:29 Temperature 36.6 C 10/22/22 09:29 Pulse Rate 96 10/22/22 09:29 Respiratory Rate 18 10/22/22 09:29 Blood Pressure 145/89 H 10/22/22 09:29 Pulse Oximetry 98 10/22/22 09:29 Oxygen Delivery Room Air 10/22/22 09:31 Medical Decision Making MDM Narrative Medical decision making narrative: waxing and waning left flank pain with radiation to buttocks and thighs DDx muscle spasm, sciatica, neuroforaminal stenosis, renal colic, cystitis, constipation, indigestion Medical Records Medical records reviewed: Yes I reviewed the external patient's medical records. Vital Signs Vital Signs: Vital Signs Temperature 36.6 C 10/22/22 09:29 Pulse Rate 96 10/22/22 09:29 Respiratory Rate 18 10/22/22 09:29 Blood Pressure 145/89 H 10/22/22 09:29 Pulse Oximetry 98 10/22/22 09:29 Oxygen Delivery Room Air 10/22/22 09:29 Temperature 36.6 C 10/22/22 09:29 Pulse Rate 96 10/22/22 09:29 Respiratory Rate 18 10/22/22 09:29 Blood Pressure 145/89 H 10/22/22 09:29 Pulse Oximetry 98 10/22/22 09:29 Oxygen Delivery Room Air 10/22/22 09:31 Lab Data Lab results reviewed: Yes I reviewed the patient's lab results. Labs: Lab Results 10/22/22 Range/Units 09:53 Urine Color Pending Urine Appearance Pending Urine pH Pending Ur Specific Addison Pending Urine Protein Pending Urine Glucose (UA) Pending Urine Ketones Pending Ur Blood (Man) Pending Urine Nitrate Pending Urine Bilirubin Pending Urine Urobilinogen Pending Leukocyte Esterase Rfl Pending Discharge Plan Discharge Clinical Impression: Acute left flank pain, Acute cystitis without hematuria, Acute left-sided low back pain with left-sided sciatica, Mus
[2022-10-22] MEDS: ACETAMINOPHEN 500 MG TABLET 1000 MG PO (10:15)
[2022-10-22] MEDS: KETOROLAC (*BKC) 60 MG/2 ML VIAL IM (10:18)
[2022-10-22 10:29] LABS: Appearance Urine Cloudy (Clear); Bilirubin Urine Negative (Negative); Blood Urine Negative (Negative); Color Urine Light Yellow (Yellow); Glucose Urine UA Negative (Negative); Ketones Urine Negative (Negative); Leukocyte Esterase Ur Negative LEU/UL (Negative); Nitrate Urine Positive (Negative); Protein Urine Negative (Negative); Urobilinogen Urine 0.2 mg/dL (0.2-1.0); pH Urine 6.5 (5.0-8.0)
[2022-10-22 10:33] LABS: Add Urine Microscopic? YES; Bacteria Urine 4+ /hpf; RBC Urine None seen /hpf (0-2); Squamous Epithelial Cell Urine Few /hpf (Few); WBC Urine None seen /hpf (0-3)
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
[2022-10-22] MEDS: methocarbamoL 500 MG TABLET 1000 MG PO (10:37)
[2022-10-22 10:43] LABS: Pregnancy On Board Control Positive; Urine Pregnancy Test Negative
[2022-10-22 11:25] VITALS: BP 140/70; PULSE 88; RESP 18; O2SAT 98
--- NOTE | 2022-10-25 13:33 | PC.NURSE ---
10/25/22 urine culture completed and pt is on correct antibiotic per Dr Lee no changes made Concha LISA
== END 2022-10-22 11:25 | disposition home or self-care (01) ==
PROVIDERS: Emergency Provider Emergency Medicine
DX: N30.00 Acute cystitis without hematuria (principal); M54.42 Lumbago with sciatica, left side; M62.830 Muscle spasm of back; F17.200 Nicotine dependence, unspecified, uncomplicated
CPT/HCPCS: 74176; 81001; 81025; 87077; 87086; 87088; 87186; 96372; 99284; A9270; J1885

== ENCOUNTER 2022-12-15 15:58 | Emergency (ER) | payer OTHER, SELFPAY ==
[2022-12-15 16:07] VITALS: PULSE 109; RESP 22; TEMP 37.2; O2SAT 98
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
== END 2022-12-15 16:45 | disposition left against medical advice (07) ==
LOC: CHSED 16:55
PROVIDERS: Emergency Provider Emergency Medicine
DX: S09.90XA Unspecified injury of head, initial encounter (principal); T74.11XA Adult physical abuse, confirmed, initial encounter; Y07.010 Husband, current, perpetrator of maltreatment and neglect; F17.200 Nicotine dependence, unspecified, uncomplicated
CPT/HCPCS: 99282

== ENCOUNTER 2023-01-18 19:44 | Emergency (ER) | payer OTHER, SELFPAY ==
--- NOTE | ~2023-01-18 | CT_ITS ---
EXAMINATION: CT abdomen pelvis wo con DATE: 01/18/2023 20:27 INDICATION: Left lower back pain. History of kidney stones. TECHNIQUE: Computed tomography (CT) of the abdomen and pelvis was performed without intravenous contr ast. Automated exposure control and iterative reconstruction technique were employed. Exam dose: 161 .01 mGy-cm total exam DLP. COMPARISON: 10/22/2022 CT abdomen pelvis FINDINGS: The lung bases are clear of infiltrate or consolidation. Normal heart size. No pericardial or pleural effusion. The liver, gallbladder, bile ducts, spleen, pancreas, pancreatic duct, and adrenal glands are unremar kable. An approximately 2 mm nonobstructing lower pole right renal calculus. Approximately [address] nonobstructing mid left renal calculi. No apparent ureteral calculus. No hydroureteronephrosis. The uterus, adnexal areas and urinary bladder appear unremarkable. There is atherosclerotic calcification but normal caliber of the abdominal aorta. No intraperitoneal or retroperitoneal or pelvic mass lesion or adenopathy or ascites is evident. No bowel obstruction, bowel wall thickening, pneumatosis or intraperitoneal free air is detected. No evidence of appendicitis. Moderately severe degenerative disc disease at L4-5 and L5-S1. No suspicious osteolytic or osteoblast ic lesions. IMPRESSION: Mild nonobstructive nephrolithiasis Moderately severe degenerative disc disease at L4-5 and L5-S1 Reviewed, dictated and finalized at [facility]. Reviewed, dictated and finalized at location [facility].
[2023-01-18 19:44] VITALS: BP 138/77; PULSE 72; RESP 20; TEMP 37.2; O2SAT 100
[2023-01-18 19:59] LABS: Appearance Urine Clear (Clear); Bilirubin Urine Negative (Negative); Blood Urine Negative (Negative); Color Urine Yellow (Yellow); Glucose Urine UA Negative (Negative); Ketones Urine Negative (Negative); Leukocyte Esterase Ur Negative LEU/UL (Negative); Nitrate Urine Negative (Negative); Protein Urine Trace (Negative); pH Urine 6.5 (5.0-8.0)
[2023-01-18] MEDS: KETOROLAC 30 MG/ML VIAL (*BKC) IM (20:00)
[2023-01-18 20:08] LABS: Add Urine Microscopic? YES; Bacteria Urine 1+ /hpf; Calcium Oxalate Crystals Urine Present /hpf; Pregnancy On Board Control Positive; RBC Urine 0-2 /hpf (0-2); Squamous Epithelial Cell Urine Few /hpf (Few); Urine Pregnancy Test Negative; WBC Urine 0-3 /hpf (0-3)
[2023-01-18 20:09] LABS: Mucus Urine Rare /lpf
--- NOTE | 2023-01-18 20:09 | ED.GENADULT ---
HPI - General Adult General Chief complaint: Back Pain/Injury Stated complaint: back pain Source: patient Mode of arrival: ambulatory History of Present Illness HPI narrative: 37-year-old white female with history of back pain chronic and bilateral kidney stones. Complains lower back pain has been worse last couple weeks. She wonder she has a kidney stone she has had some difficulty urinating has been constipated on and off. Denies any blood in her stool shortness of breath cough fever difficulty breathing sore throat runny nose. She has been constipated had a small hard stool this morning. Last time she went was couple weeks ago she said. She is eating and drinking fine walking talking seeing hearing without any rash or itching bleeding or bruising dizziness or lightheadedness swelling lumps or bumps or any other complaints. Related Data Allergies Allergy/AdvReac Type Severity Reaction Status Date / Time ethinyl estradiol Allergy Intermediate Unknown Verified 12/15/22 16:36 [Seasonale (91)] levonorgestrel Allergy Intermediate Unknown Verified 12/15/22 16:36 [Seasonale (91)] Review of Systems Review of Systems: All systems reviewed & are unremarkable except as noted in HPI and below [facility] Past Medical History Medical History Kidney stones Surgical History Surgical History H/O cystoscopy kidney stone removal Social History Social History Smoking status: Current every day smoker Exam Narrative: White female patient no apparent distress.? Head normocephalic, atraumatic.? Eyes conjunctiva pink sclera nonicteric.? Extraocular movements are intact.? Ears externally normal.? Oropharynx is clear with moist mucous membranes without exudates.? Neck is supple nontender no lymphadenopathy.? Back is nontender.? negative straight leg raise bilaterally. Lungs are clear.? Heart is regular rate and rhythm without murmurs gallops or rubs.? Chest wall is nontender.? Abdomen is soft and nontender no hepatosplenomegaly or masses no CVA tenderness no abdominal bruits.? Extremities no cyanosis clubbing or edema.? Skin is warm and dry without rashes or lesions.? Neurological patient is alert and oriented x4.? Motor and sensory grossly intact.? Gait is normal. Course Vital Signs Vital signs: Vital Signs Temperature 37.2 C 01/18/23 19:44 Pulse Rate 72 01/18/23 19:44 Respiratory Rate 20 01/18/23 19:44 Blood Pressure 138/77 01/18/23 19:44 Pulse Oximetry 100 01/18/23 19:44 Oxygen Delivery Room Air 01/18/23 19:44 Temperature 37.2 C 01/18/23 21:12 Pulse Rate 80 01/18/23 21:12 Respiratory Rate 20 01/18/23 21:12 Blood Pressure 132/70 01/18/23 21:12 Pulse Oximetry 98 01/18/23 21:12 Oxygen Delivery Room Air 01/18/23 21:12 Medical Decision Making MDM Narrative Medical decision making narrative: Patient Patient is placed in room 3 history and physical were performed. Urine Analysis was obtained. She was sent for a CT abdomen and pelvis without contrast . Patient is given Toradol 30 mg IM Independent Historian: ? Significant other Differential Dx includes but not limited to: degenerative disc disease back strain kidney stone Medications were Reviewed:? ? Medications treatments given: Toradol 10 patient got improvement with this. Independently Interpreted by me:? ? CT and pelvis showed bilateral stones disc disease independently interpreted by me. Ureteral stones are no obstruction? External Source Review:?? Medical conditions/social Situation Impacting Patients Care:?? Shared decision Making:? evaluation was discussed with patient all questions were asked and answered and Patient agreed with the plan. Discussed with ? Clinical impression:? ? Chronic back pain. ? Patient disposition: ? Disch
--- NOTE | 2023-01-18 20:20 | PC.NURSE ---
patient and s/o smell of alcohol & marijuana
[2023-01-18] MEDS: hydrOXYzine HCL 25 MG TABLET PO (20:50)
--- NOTE | 2023-01-18 20:51 | PC.NURSE ---
patient concern amount time for CT results, service writer checked with radiology, 3rd in que for reading. helped reposition and made comfortable for wait
[2023-01-18 21:12] VITALS: BP 132/70; PULSE 80; RESP 20; TEMP 37.2; O2SAT 98
== END 2023-01-18 21:14 | disposition home or self-care (01) ==
PROVIDERS: Emergency Provider Emergency Medicine
DX: M54.50 Low back pain, unspecified (principal); G89.29 Other chronic pain; F17.200 Nicotine dependence, unspecified, uncomplicated
CPT/HCPCS: 74176; 81001; 81025; 96372; 99284; A9270; J1885

== ENCOUNTER 2023-04-18 19:49 | Observation (INO) | payer OTHER, SELFPAY ==
--- NOTE | ~2023-04-18 | CT_ITS ---
EXAMINATION: CT abdomen pelvis wo con DATE: 04/18/2023 20:45 INDICATION: BILAT FLANK PAIN/HX OF STONES TECHNIQUE: Computed tomography (CT) of the abdomen and pelvis was performed without intravenous contr ast. Automated exposure control and iterative reconstruction technique were employed. The dose-length product was 409.73 mGy-cm. COMPARISON: 01/18/2023. FINDINGS: Lower thorax: Coronary artery calcification. Granulomatous disease. Liver: Normal. Biliary/Gallbladder: Gallbladder is normal. No bile duct dilation. Pancreas: No mass or duct dilation. Spleen: Normal. Adrenals:No mass. Kidneys: No suspicious mass. No hydronephrosis. 2 mm and 3 mm left midpole calcifications. 2 mm right lower pole calcification. GI tract: Mild gastric distention. Dilation of multiple fluid-filled loops of upper and mid small bow el, no transition point. Normal appendix. Mesentery/Peritoneum: Prominent upper mesenteric lymph nodes with surrounding stranding. Retroperitoneum: No mass. Atherosclerotic abdominal aortic and/or arterial calcifications. Pelvis: Pelvic organs are within normal limits. Soft Tissues: Soft tissues and body wall unremarkable. Bones: No acute osseous finding. IMPRESSION: Coronary artery calcification, greater than expected for age. Small bowel ileus. Early/partial obstruction not excluded. Mesenteric panniculitis. Bilateral nephrolithiasis. No CT evidence of obstructive uropathy. Reviewed, dictated and finalized at location [facility]. [employer]
--- NOTE | ~2023-04-18 | XR_ITS ---
EXAMINATION: XR abdomen/kub 1V INDICATION: Ileus versus obstruction TECHNIQUE: Supine view of the abdomen is obtained. COMPARISON: CT from yesterday FINDINGS: No definitely dilated loops of bowel are identified. The small bowel is relatively gasless which can be seen in the setting of fluid-filled bowel which would obscure assessment for obstruction on the supine radiograph. Gas is present in the large bowel. No free intraperitoneal gas is identifi ed. IMPRESSION: 1. No dilated loops of bowel seen although gasless small bowel limits assessment. Reviewed, dictated and finalized at location [facility]. TESTER IMPRESSION: 1. No dilated loops of bowel seen although gasless small bowel limits assessmen tLea
[2023-04-18 19:49] VITALS: BP 127/77; PULSE 100; RESP 20; TEMP 37.1; O2SAT 99
[2023-04-18] MEDS: SODIUM CHLORIDE 0.9% IV 1,000 ML 999 ML IV CONT (20:20)
[2023-04-18 20:22] LABS: Basophils Absolute Auto 0.02 K/mm3 (0.00-0.10); Basophils Percent Auto 0.2 % (0.0-1.0); Eosinophils Absolute Auto 0.07 K/mm3 (0.02-0.50); Eosinophils Percent Auto 0.7 % (1.0-6.0); Hematocrit 39.8 % (35.0-49.0); Hemoglobin 12.7 g/dL (12.0-15.0); Immature Granulocyte Absolute 0.04 K/mm3 (0.00-0.00); Immature Granulocyte Percent A 0.4 % (0.0-0.0); Lymphocytes Absolute Auto 0.56 K/mm3 (1.10-4.50); Lymphocytes Percent Auto 5.7 % (18.0-42.0); Mean Corpuscular HGB Conc 31.9 g/dL (32.0-36.0); Mean Corpuscular Hemoglobin 30.2 pg (27.0-31.0); Mean Corpuscular Volume 94.8 fL (78.0-102.0); Mean Platelet Volume 10.7 fl (9.2-11.8); Platelet Count Result 206 K/mm3 (150-420); Red Cell Distribution Width 14.2 % (11.6-14.4); White Blood Count 9.9 K/mm3 (4.8-10.8)
[2023-04-18] MEDS: KETOROLAC 30 MG/ML VIAL (*BKC) IV PUSH (20:22)
[2023-04-18 20:23] LABS: Appearance Urine Clear (Clear); Bilirubin Urine Negative (Negative); Blood Urine Negative (Negative); Color Urine Light Yellow (Yellow); Glucose Urine UA Negative (Negative); Ketones Urine Negative (Negative); Leukocyte Esterase Ur Negative LEU/UL (Negative); Nitrate Urine Negative (Negative); Protein Urine Negative (Negative); Urobilinogen Urine 0.2 mg/dL (0.2-1.0)
[2023-04-18] MEDS: ONDANSETRON INJ 4 MG/2 ML VIAL IV PUSH (20:23)
[2023-04-18 20:24] LABS: Add Urine Microscopic? NO
[2023-04-18 20:28] LABS: Pregnancy On Board Control Positive; Urine Pregnancy Test Negative
[2023-04-18 20:37] LABS: INR 0.9; Prothrombin Time 10.4 Seconds (9.50-12.10)
[2023-04-18 20:42] LABS: Lactic Acid Reflex 0.9 mmol/L (0.4-2.0)
[2023-04-18 20:51] LABS: Alanine Aminotransferase 22 U/L (14-59); Albumin Level 3.3 g/dL (3.4-5.0); Alkaline Phosphatase 61 U/L (46-116); Anion Gap 8 mmol/L (8-16); Aspartate Amino Transferase 27 U/L (15-37); Bilirubin,Total 0.2 mg/dL (0.00-1.00); Blood Urea Nitrogen 16 mg/dL (7-18); Calcium 7.7 mg/dL (8.5-10.1); Carbon Dioxide 26 mmol/L (21-32); Chloride 103 mmol/L (98-108); Estimated CRCL calculation 83 ml/min; Estimated Glomerular Filt Rate > 60; Glucose 108 mg/dL (70-99); Lipase 36 U/L (16-77); Osmolality Calculated 286 mOsm/kg (285-295); Potassium 3.8 mmol/L (3.5-5.1); Sodium 137 mmol/L (136-145); Total Protein 6.6 g/dL (6.4-8.2)
--- NOTE | 2023-04-18 21:11 | ED.ABDPAIN ---
HPI - Abdominal Pain General Chief Complaint: Back Pain/Injury Stated Complaint: passing kidney stone Time Seen by Provider: 04/18/23 19:52 Source: patient and family Mode of arrival: ambulatory History of Present Illness HPI narrative: This is 38-year-old female with past medical history of nephrolithiasis, presents with some abdominal pain and flank pain pain is in the periumbilical area and wraps around into her bilateral with no dysuria no suprapubic pain or tenderness no hematuria no fever chills, currently no nausea or vomiting. MD elicited complaint: abdominal pain Onset (ago): hour(s) Pain Consistency: constant Severity: moderate Quality: aching and fullness Migration to: periumbilical, suprapubic, L flank and R flank Related Data Home Medications Medication Instructions Recorded Confirmed prazosin 1 mg capsule 1 mg PO DAILY 04/18/23 04/18/23 trazodone 50 mg tablet 50 mg PO HS 04/18/23 04/18/23 Allergies Allergy/AdvReac Type Severity Reaction Status Date / Time ethinyl estradiol Allergy Intermediate Unknown Verified 04/18/23 20:39 [Seasonale (91)] levonorgestrel Allergy Intermediate Unknown Verified 04/18/23 20:39 [Seasonale (91)] Review of Systems Review of Systems: All systems reviewed & are unremarkable except as noted in HPI and below PMFSH Past Medical History Medical History Kidney stones Surgical History Surgical History H/O cystoscopy kidney stone removal Social History Social History Smoking status: Current every day smoker Exam Const: General: no acute distress Nutritional Appearance: well nourished Orientation/consciousness: patient oriented x3 Limitations: no limitations Neck: Neck: normal visual inspection and no lymphadenopathy Chest: Chest palpation & inspection: normal inspection of the chest Resp: Effort & Inspection: normal respiratory effort Auscultation: clear to auscultation bilaterally Cardio: Rate: regular rate Rhythm: regular rhythm GI: GI Palp: Yes Soft to palpation Auscultation: normal bowel sounds Back/Spine/Pelvis: Back: CVA tenderness Skin: General skin exam: normal color Rashes: no rashes Neuro: General: patient oriented x3 and moves all extremities Extrem: General: normal to inspection Course Course Emergency Course: Patient with pain and flank pain received IV fluids, received IV Toradol 30mg, and after reassessment patient states that it did relieve her pain slightly, will administer a dose of morphine 4mg IV, labs reviewed and no significant abnormalities, CT scan shows a small bowel ileus, vitals are stable patient's white count is normal currently no vomiting. Will admit the patient for observation keep patient NPO and pain control. Vital Signs Vital signs: Vital Signs Temperature 37.1 C 04/18/23 19:49 Pulse Rate 100 04/18/23 19:49 Respiratory Rate 20 04/18/23 19:49 Blood Pressure 127/77 04/18/23 19:49 Pulse Oximetry 99 04/18/23 19:49 Oxygen Delivery Room Air 04/18/23 19:49 Temperature 37.1 C 04/18/23 19:49 Pulse Rate 100 04/18/23 19:49 Respiratory Rate 20 04/18/23 19:49 Blood Pressure 127/77 04/18/23 19:49 Pulse Oximetry 99 04/18/23 19:49 Oxygen Delivery Room Air 04/18/23 19:49 MDM - Abdominal Pain Lab Data 04/18/23 20:18 04/18/23 20:18 Labs: Lab Results 04/18/23 Range/Units 20:18 WBC 9.9 (4.8-10.8) K/mm3 RBC 4.20 (4.20-5.40) M/mm3 Hgb 12.7 (12.0-15.0) g/dL Hct 39.8 (35.0-49.0) % MCV 94.8 (78.0-102.0) fL MCH 30.2 (27.0-31.0) pg MCHC 31.9 L (32.0-36.0) g/dL RDW 14.2 (11.6-14.4) % Plt Count 206 (150-420) K/mm3 MPV 10.7 (9.2-11.8) fl Immature Gran % (Auto) 0.4 H (0.0-0.0) % Neut % (Auto) 91.0 H (50.0-70.0) % Lymph % (Auto)
[2023-04-18 21:21] VITALS: O2SAT 96
[2023-04-18] MEDS: MORPHINE SULFATE (*CRX) 4 MG/ML INJ IV PUSH (21:29)
[2023-04-18] MEDS: CALCIUM CHLOR 1,000MG/100ML NS 1,000 MG/100 ML BAG 100 MG IVPB (21:51)
[2023-04-18] MEDS: SODIUM CHLORIDE 0.9% IV 1,000 ML 100 ML IV CONT (21:54)
[2023-04-18] MEDS: SODIUM CHLORIDE 0.9% IV 100 ML (22:08)
[2023-04-18] MEDS: LORazepam INJ (*CRX) 2 MG/ML VIAL 0.5 MG IV PUSH (22:46)
[2023-04-19] VITALS: BP 110/88; PULSE 85; RESP 20; TEMP 36.7; O2SAT 95
[2023-04-19] MEDS: MORPHINE SULFATE (*CRX) 2 MG/ML INJ IV PUSH ×2 (02:09→07:38)
--- NOTE | 2023-04-19 02:16 | ADMGEN ---
This patient, Mirna Rojas, was admitted to 2nd Floor Room 202-1. Patient oriented to hospital policies and general routines including ID bracelet, bed and alarms, visiting hours, pain management, procedures, bathroom and other care routines, personal items, smoking policy, room service/diet, and visiting hours. Information on how to activate the Rapid Response Team has been discussed. Patient are encouraged to report perceived risks to care and to ask questions if they do not understand what they are told or what they should do.
--- NOTE | 2023-04-19 05:47 | PC.NURSE ---
Pt walked to the [facility] w/IV fluids and pole. This RN asked the pt what she was attempting to do. The pt aggressively stated she was going to smoke. This RN reminded the pt that this is discouraged and against hospital rules, but pt was adamant about smoking her cigarette stating I'm not asking permission, I'm going. This RN then disconnected her IV tubing and walked w/the pt along w/ Aman from security outside to supervise pt to make sure she did not fall, get lost, or leave independently. After pt smoked her cigarette the pt stated that an ED RN had communicated to her that she was allowed to smoke. This RN communicated to the pt that they may be the case for some facilities, but not this one. Once pt and RN arrived back to 2nd floor Amy Figueredo RN communicated the option of leaving AMA and explained again to the pt that going outside to smoke is not tolerated. Amy told the pt that an order for a nicotine patch can be put in, and pt was agreeable to that. Pt is currently back in her room.
--- NOTE | 2023-04-19 05:50 | PC.NURSE ---
Dr. Lee notified of pt leaving the building to smoke. Orders received and noted for a nicotene patch 21 mg.
[2023-04-19 05:58] LABS: Basophils Absolute Auto 0.03 K/mm3 (0.00-0.10); Basophils Percent Auto 0.4 % (0.0-1.0); Eosinophils Absolute Auto 0.05 K/mm3 (0.02-0.50); Eosinophils Percent Auto 0.7 % (1.0-6.0); Hematocrit 36.8 % (35.0-49.0); Hemoglobin 11.7 g/dL (12.0-15.0); Immature Granulocyte Absolute 0.05 K/mm3 (0.00-0.00); Immature Granulocyte Percent A 0.7 % (0.0-0.0); Lymphocytes Absolute Auto 0.84 K/mm3 (1.10-4.50); Lymphocytes Percent Auto 11.9 % (18.0-42.0); Mean Corpuscular HGB Conc 31.8 g/dL (32.0-36.0); Mean Corpuscular Hemoglobin 30.2 pg (27.0-31.0); Mean Corpuscular Volume 95.1 fL (78.0-102.0); Monocytes Absolute Auto 0.26 K/mm3 (0.10-0.90); Monocytes Percent Auto 3.7 % (2.0-11.0); Neutrophils Absolute Auto 5.8 K/mm3 (1.7-7.2); Neutrophils Percent Auto 82.6 % (50.0-70.0); Platelet Count Result 178 K/mm3 (150-420); Red Blood Count 3.87 M/mm3 (4.20-5.40); Red Cell Distribution Width 14.3 % (11.6-14.4); White Blood Count 7.1 K/mm3 (4.8-10.8)
[2023-04-19 06:18] LABS: Alanine Aminotransferase 18 U/L (14-59); Albumin Level 2.9 g/dL (3.4-5.0); Alkaline Phosphatase 53 U/L (46-116); Anion Gap 7 mmol/L (8-16); Aspartate Amino Transferase 10 U/L (15-37); Bilirubin,Total 0.2 mg/dL (0.00-1.00); Blood Urea Nitrogen 12 mg/dL (7-18); Calcium 7.9 mg/dL (8.5-10.1); Carbon Dioxide 24 mmol/L (21-32); Chloride 104 mmol/L (98-108); Estimated CRCL calculation 102 ml/min; Estimated Glomerular Filt Rate > 60; Glucose 104 mg/dL (70-99); Magnesium 1.7 mg/dL (1.8-2.4); Osmolality Calculated 279 mOsm/kg (285-295); Potassium 3.6 mmol/L (3.5-5.1); Sodium 135 mmol/L (136-145); Total Protein 5.9 g/dL (6.4-8.2)
[2023-04-19] MEDS: NICOTINE (*PBKC) 21 MG PATCH 1 PATCH TRANSDERM (07:41)
[2023-04-19 08:00] VITALS: BP 128/79; PULSE 83; RESP 20; TEMP 36.1; O2SAT 99
[2023-04-19] MEDS: SODIUM CHLORIDE 0.9% IV 1,000 ML 100 ML IV CONT (09:25)
[2023-04-19] MEDS: PANTOPRAZOLE SODIUM IV 40 MG VIAL IV PUSH (09:26)
--- NOTE | 2023-04-19 10:04 | PM.IMHP ---
H&P: HPI History of Present Illness Date/Time: 04/19/23 10:04 [facility] Past Medical History Medical History Kidney stones Surgical History Surgical History H/O cystoscopy kidney stone removal Social History Social History Years smoked: 30 Smoking status: Current every day smoker Tobacco type: cigarettes Alcohol intake: never Substance use: never Do You Feel Safe in your Home?: Yes Lack of Transportation: No Lack of Food: Never True Current Housing: I Have Housing Concerned About Future Housing: No Difficulty Paying Gas/Electric Bills: No Difficulty Paying for Meds: No Currently Unemployed: No Education: Bachelor's Degree Difficulty w/ Childcare or Family Care: No Spiritual care concerns: No Meds Home Medications and Allergies Home Medications Medication Instructions Recorded Confirmed Type prazosin 1 mg capsule 1 mg PO DAILY 04/18/23 04/18/23 History trazodone 50 mg tablet 50 mg PO HS 04/18/23 04/18/23 History Allergies Allergy/AdvReac Type Severity Reaction Status Date / Time ethinyl estradiol Allergy Intermediate Unknown Verified 04/18/23 20:39 [Seasonale (91)] levonorgestrel Allergy Intermediate Unknown Verified 04/18/23 20:39 [Seasonale (91)] Vital Signs Vital Signs - 24 hr 04/18/23 19:49 04/18/23 21:21 04/19/23 00:00 Temperature 37.1 C 36.7 C Pulse Rate 100 85 Respiratory Rate 20 20 Blood Pressure 127/77 110/88 Pulse Oximetry 99 96 95 Oxygen Delivery Room Air Room Air Room Air 04/19/23 08:00 Temperature 36.1 C L Pulse Rate 83 Respiratory Rate 20 Blood Pressure 128/79 Pulse Oximetry 99 Oxygen Delivery Room Air H&P: Results Labs Labs: Short CBC 04/18/23 04/19/23 Range/Units 20:18 05:22 WBC 9.9 7.1 (4.8-10.8) K/mm3 Hgb 12.7 11.7 L (12.0-15.0) g/dL Hct 39.8 36.8 (35.0-49.0) % Plt Count 206 178 (150-420) K/mm3 BMP 04/18/23 04/19/23 20:18 05:22 Sodium 137 135 L Potassium 3.8 3.6 Chloride 103 104 Carbon Dioxide 26 24 BUN 16 12 Creatinine 0.65 0.58 Glucose 108 H 104 H Calcium 7.7 L 7.9 L Liver Function 04/18/23 04/19/23 Range/Units 20:18 05:22 Total Bilirubin 0.2 0.2 (0.00-1.00) mg/dL AST 27 10 L (15-37) U/L ALT 22 18 (14-59) U/L Alkaline Phosphatase 61 53 (46-116) U/L Albumin 3.3 L 2.9 L (3.4-5.0) g/dL Urine 04/18/23 Range/Units 20:18 Urine Color Light yellow (Yellow) Urine Appearance Clear (Clear) Urine pH 6.0 (5.0-8.0) Ur Specific [place] 1.020 (1.010-1.020) Urine Protein Negative (Negative) Urine Glucose (UA) Negative (Negative)
[2023-04-19] MEDS: polyethylene glycoL 3350 17 GM POWD.PACK PO (11:11)
--- NOTE | 2023-04-19 12:49 | PM.SD2 ---
Same Day Admit/Disch: HPI History of Present Illness Chief complaint: passing kidney stone Narrative: Mirna Rojas is a 38 year old female Who presented to the emergency department complaining of back complaint pain concern for passing a kidney stone. Patient has a history of chronic constipation, psychiatric illness and she was recently discharged from inpatient drug rehab. Patient was very agitated this morning about not being able to smoke and her psychiatric medications were not sent to pharmacy when she was discharged from [facility] in [place]. Patient reports she was on Zoloft 100 mg daily, prazosin 1 mg daily, trazodone 50 mg HS, hydroxyzine PRN, Flexeril PRN, tramadol PRN. Patient reports that she was frustrated being kept NPO and not receiving Miralax twice a day as she does at home. We explained that concern for ileus/partial obstruction was reason for NPO orders. We will start clears and give Miralax, advance diet as tolerated. Patient reports that her pain is under control at this time but her anxiety/agitation is elevated. Restarted majority of reported medications. Will see how she tolerates. [facility] Past Medical History Medical History (Updated 04/19/23 @ 13:41 by Onur Knox APRN) Anxiety and depression Chronic back pain Chronic constipation Kidney stones Surgical History Surgical History H/O cystoscopy kidney stone removal Social History Social History Years smoked: 30 Smoking status: Current every day smoker Tobacco type: cigarettes Alcohol intake: never Substance use: never Do You Feel Safe in your Home?: Yes Lack of Transportation: No Lack of Food: Never True Current Housing: I Have Housing Concerned About Future Housing: No Difficulty Paying Gas/Electric Bills: No Difficulty Paying for Meds: No Currently Unemployed: No Education: Bachelor's Degree Difficulty w/ Childcare or Family Care: No Spiritual care concerns: No Same Day Admit/Disch: Med Pre-admit Medications Home Medications Medication Instructions Recorded Confirmed Type hydroxyzine HCl 25 mg tablet 50 mg PO Q6H PRN Anxiety #20 tabs 04/19/23 Rx nicotine 21 mg/24 hr daily 1 patch transdermal DAILY #30 ea 04/19/23 Rx transdermal patch (Nicoderm CQ) polyethylene glycol 3350 17 gram 17 g PO Q12HR #60 ea 04/19/23 Rx oral powder packet (Miralax) prazosin 1 mg capsule 1 mg PO HS #30 caps 04/19/23 Rx sertraline 50 mg tablet (Zoloft) 100 mg PO QAM #30 tabs 04/19/23 Rx trazodone 50 mg tablet 50 mg PO HS #30 tabs 04/19/23 Rx Review of Systems Review of Systems All systems reviewed & are unremarkable except as noted in HPI and below Exam Narrative: GENERAL: Well-appearing, well-nourished, and in no acute distress. HEAD: Normocephalic, atraumatic. ENT:? Mucous membranes moist. CHEST: Clear to auscultation.? No respiratory distress. HEART: Regular rate and rhythm. ? Normal peripheral pulses. ABDOMEN: Soft, nontender, nondistended. EXTREMITIES: Normal range of motion. No peripheral edema. SKIN: Warm dry normal color NEURO: Alert and oriented x3. PSYCH: moderately agitated/anxious DS: Data Data Completed and Pending Completed studies during hospitalization: abdomen pelvis CT, KUB Labs on day of discharge: Labs from last 24 hours 04/19/23 04/18/23 05:22 20:18 WBC 7.1 9.9 RBC 3.87 L 4.20 Hgb 11.7 L 12.7 Hct 36.8 39.8 MCV 95.1 94.8 MCH 30.2 30.2 MCHC 31.8 L 31.9 L RDW 14.3 14.2 Plt Count 178 206 MPV 11.0 10.7 Immature Gran % (Auto) 0.7 H 0.4 H Neut % (Auto) 82.6 H 91.0 H Lymph % (Auto) 11.9 L 5.7 L [place] % (Auto) 3.7 2.0 Eos % (Auto) 0.7 L 0.7 L Baso % (Auto) 0.4 0.2 Lymph # (Auto) 0.84 L 0.56 L [place] # (Auto) 0.26 0.20 Eos # (Auto) 0.05 0.07 Baso # (Auto) 0.03 0.02 Abs Immat Gr
--- NOTE | 2023-04-19 13:14 | PC.NURSE ---
Pt was walking in the room talking on phone. Pt then went down elevator and is sitting out front. Patient had been notified by multiple staff that she was not to go outside.
--- NOTE | 2023-04-19 14:08 | PC.NURSE ---
Pt walked to front door without difficulty. Waiting for ride.
--- NOTE | 2023-04-19 14:13 | PCCCNOTE ---
Pt discharged prior to giving her the Advance Directive form.
--- NOTE | 2023-04-23 08:57 | PC.NURSE ---
Discharge call back attempted, no answer
--- NOTE | 2023-04-24 10:27 | PC.NURSE ---
Unable to complete discharge call back no answer
--- NOTE | 2023-04-25 09:10 | PC.NURSE ---
Discharge call back unsuccessful x3 attempts, goes straight to voicemail
== END 2023-04-19 14:00 | disposition home or self-care (01) ==
LOC: CHSED 21:17 → CHS2ND 21:27
PROVIDERS: Admitting Provider Internal Medicine; Emergency Provider Emergency Medicine; Visit Provider Internal Medicine
DX: K56.7 Ileus, unspecified (principal); K59.09 Other constipation; I25.10 Atherosclerotic heart disease of native coronary artery without angina pectoris; K65.4 Sclerosing mesenteritis; M54.9 Dorsalgia, unspecified; G89.29 Other chronic pain; F41.9 Anxiety disorder, unspecified; F17.210 Nicotine dependence, cigarettes, uncomplicated; F32.A Depression, unspecified; Z79.899 Other long term (current) drug therapy; Z87.442 Personal history of urinary calculi
CPT/HCPCS: 36415; 74018; 74176; 80053; 81003; 81025; 83605; 83690; 83735; 85025; 85610; 85730; 96361; 96365; 96374; 96375; 96376; 99285; A9270; C9113; G0378; G0379; J1885; J2060; J2270; J2405; J7030

== ENCOUNTER 2023-05-04 21:27 | Emergency (ER) | payer OTHER, SELFPAY ==
[2023-05-04 21:27] VITALS: BP 138/87; PULSE 89; RESP 18; TEMP 36.3; O2SAT 98
[2023-05-04] MEDS: AMOXICILLIN 500 MG CAPSULE PO (21:42)
[2023-05-04] MEDS: LIDOCAINE HCL 1% LOCAL INJ 10 ML VIAL INFILTRATE (21:42)
--- NOTE | 2023-05-04 21:44 | ED.GENADULT ---
HPI - General Adult General Chief complaint: Unspecified Stated complaint: tooth pain Time Seen by Provider: 05/04/23 21:31 Source: patient Mode of arrival: ambulatory Limitations: no limitations History of Present Illness HPI narrative: this is a 38-year-old female that presents dental pain is scheduled to see a dentist but has been having upper dental pain bilaterally and dry socket area and cracked tooth area with no fever chills pain level about an 8/10 has been trying [id number] medication with minimal relief. There is no submandibular gland inflammation or tenderness no nausea vomiting no shortness of breath no fever chills. Onset (ago): day(s) Location: mouth Severity: severe Severity scale (1-10): 8 Related Data Allergies Allergy/AdvReac Type Severity Reaction Status Date / Time ethinyl estradiol Allergy Intermediate Unknown Verified 05/04/23 21:31 [Seasonale (91)] levonorgestrel Allergy Intermediate Unknown Verified 05/04/23 21:31 [Seasonale (91)] Review of Systems Review of Systems: All systems reviewed & are unremarkable except as noted in HPI and below PMFSH Past Medical History Medical History Anxiety and depression Chronic back pain Chronic constipation Kidney stones Surgical History Surgical History H/O cystoscopy kidney stone removal Social History Social History Years smoked: 30 Smoking status: Current every day smoker Tobacco type: cigarettes Alcohol intake: never Substance use: never Do You Feel Safe in your Home?: Yes Lack of Transportation: No Lack of Food: Never True Current Housing: I Have Housing Concerned About Future Housing: No Difficulty Paying Gas/Electric Bills: No Difficulty Paying for Meds: No Currently Unemployed: No Education: Bachelor's Degree Difficulty w/ Childcare or Family Care: No Spiritual care concerns: No Exam Const: General: cooperative, healthy appearing, comfortable and no acute distress HENMT: Teeth image: 1. Dry socket dental pain, with surrounding gum inflammation 2. cracked tooth painful with surrounding gum inflammation Resp: Effort & Inspection: normal respiratory effort and able to speak in complete sentences Auscultation: clear to auscultation bilaterally Cardio: Jugular venous distension: no JVD Palpation: normal PMI Rate: regular rate Rhythm: regular rhythm Skin: General skin exam: normal color and no rashes or lesions noted Psych: Appearance: grossly normal Mental Status: mental status grossly normal Course Course Emergency Course: patient received a lidocaine injection to dental area for dental pain and gum inflammation, antibiotics administered amoxicillin 500mg p.o.. Patient tolerated procedure well Vital Signs Vital signs: Vital Signs Temperature 36.3 C L 05/04/23 21:27 Pulse Rate 89 05/04/23 21:27 Respiratory Rate 18 05/04/23 21:27 Blood Pressure 138/87 05/04/23 21:27 Pulse Oximetry 98 05/04/23 21:27 Oxygen Delivery Room Air 05/04/23 21:27 Temperature 36.3 C L 05/04/23 21:27 Pulse Rate 89 05/04/23 21:27 Respiratory Rate 18 05/04/23 21:27 Blood Pressure 138/87 05/04/23 21:27 Pulse Oximetry 98 05/04/23 21:27 Oxygen Delivery Room Air 05/04/23 21:27 Procedures Nerve Block Nerve Block 1: Nerve block date: 05/04/23 Nerve block time: 21:47 Time out performed: Yes Local Anesthetic: lidocaine 1% Side: left and right Nerve Blocks: other ( dental) Procedure Successful: Yes Patient Tolerated Procedure: well Complications: none Medical Decision Making Vital Signs Vital Signs: Vital Signs Temperature 36.3 C L 05/04/23 21:27 Pulse Rate 89 05/04/23 21:27 Respiratory Rate 18 05/04/23 21:27 Blood
== END 2023-05-04 22:00 | disposition home or self-care (01) ==
PROVIDERS: Emergency Provider Emergency Medicine
DX: K04.7 Periapical abscess without sinus (principal); K03.81 Cracked tooth; F17.210 Nicotine dependence, cigarettes, uncomplicated
CPT/HCPCS: 64999; 99283; A9270

== ENCOUNTER 2023-05-26 01:18 | Emergency (ER) | payer OTHER, SELFPAY ==
[2023-05-26 01:18] VITALS: BP 128/85; PULSE 80; RESP 18; TEMP 36.1; O2SAT 100
--- NOTE | 2023-05-26 01:25 | ED.GENADULT ---
HPI - General Adult General Chief complaint: Upper Respiratory Infection Stated complaint: Cold Time Seen by Provider: 05/26/23 01:25 History of Present Illness HPI narrative: Mirna presented to the ED with a couple concerns. She stepped on a nail a couple years ago. 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 No recent injury, redness, pain swelling or drainage. She has also had a lot of drainage, post nasal drip cough, rhinorrhea and some sinus pain for a couple weeks. It was improving but recently became worse. Related Data Home Medications Medication Instructions Recorded Confirmed bupropion HCl 150 mg 24 hr tablet, 150 mg PO DAILY 05/26/23 05/26/23 extended release gabapentin 300 mg capsule 300 mg PO BID 05/26/23 05/26/23 Allergies Allergy/AdvReac Type Severity Reaction Status Date / Time ethinyl estradiol Allergy Intermediate Unknown Verified 05/26/23 01:24 [Seasonale (91)] levonorgestrel Allergy Intermediate Unknown Verified 05/26/23 01:24 [Seasonale (91)] Review of Systems Review of Systems: All systems reviewed & are unremarkable except as noted in HPI and below PMFSH Past Medical History Medical History Anxiety and depression Chronic back pain Chronic constipation Kidney stones Surgical History Surgical History H/O cystoscopy kidney stone removal Social History Social History Years smoked: 30 Smoking status: Current every day smoker Tobacco type: cigarettes Alcohol intake: never Substance use: never Do You Feel Safe in your Home?: Yes Lack of Transportation: No Lack of Food: Never True Current Housing: I Have Housing Concerned About Future Housing: No Difficulty Paying Gas/Electric Bills: No Difficulty Paying for Meds: No Currently Unemployed: No Education: Bachelor's Degree Difficulty w/ Childcare or Family Care: No Spiritual care concerns: No Exam Const: General: cooperative, healthy appearing, comfortable, no acute distress, well developed, alert, awake and Physically active Orientation/consciousness: oriented to person, oriented to place and oriented to time HENMT: Head: normal to inspection, normocephalic and atraumatic Ears: hearing grossly normal bilaterally and external ears normal Face/Nose/Sinus: Normal external nose present Eyes: General: appearance normal, both eyes and all related structures Periorbital: periorbital findings normal Sclera: sclerae normal Pupils: Equal, round and reactive pupils present Neck: Neck: normal visual inspection Chest: Chest palpation & inspection: normal inspection of the chest Resp: Effort & Inspection: normal respiratory effort, able to speak in complete sentences and no respiratory distress Auscultation: clear to auscultation bilaterally Cardio: Jugular venous distension: no JVD Rate: regular rate Rhythm: regular rhythm GI: Inspection: normal to inspection GI Palp: Yes Soft to palpation Auscultation: normal bowel sounds Skin: General skin exam: normal color and no rashes or lesions noted Other: hyperkeratotic tender lesion on the anterior surface of left foot Neuro: General: oriented to person, oriented to place and oriented to time Cranial nerves: Yes Equal, round and reactive pupils present Extrem: General: normal to inspection Course Vital Signs Vital signs: Vital Signs Temperature 96.9 F L 05/26/23 01:18 Pulse Rate 80 05/26/23 01:18 Respiratory Rate 18 05/26/23 01:18 Blood Pressure 128/85 05/26/23 01:18 Pulse Oximetry 100 05/26/23 01:18 Oxygen Delivery Room Air 05/26/23 01:18 Temperature 96.9 F L 05/26/23 01:18 Pulse Rate 80 05/26/23 01:18 Respiratory Rate 18 05/26/23 01:18 Blood Pressure 128/85 05/26/23 01:18 Pulse Oximetry 10
== END 2023-05-26 01:39 | disposition home or self-care (01) ==
LOC: CHSED 01:38
PROVIDERS: Emergency Provider Family Medicine
DX: L84 Corns and callosities (principal); J32.9 Chronic sinusitis, unspecified; F41.8 Other specified anxiety disorders; F17.210 Nicotine dependence, cigarettes, uncomplicated
CPT/HCPCS: 99283

== ENCOUNTER 2023-06-01 18:04 | Emergency (ER) | payer OTHER, SELFPAY ==
--- NOTE | ~2023-06-01 | XR_ITS ---
EXAM: XR hand RT min 3V DATE: 06/01/2023 19:01 HISTORY: injury R 5th PIP HX TENDON TEAR/SURGERY TO FINGER . COMPARISON: 02/27/2018. FINDINGS: Normal mineralization. The fifth PIP joint is held in flexion. No fracture or dislocation. No lytic or blastic lesion. Joint spaces are maintained. No erosion or periosteal change. Possible d orsal soft tissue swelling of the fifth digit. IMPRESSION: No acute osseous finding in the left hand. The fifth PIP joint is held in flexion which m ay be secondary to positioning, extensor injury or chronic contracture. Reviewed, dictated and finalized at location K. STANT OFFICE MANAGER IMPRESSION: No acute osseous finding in the left hand. The fifth PIP joint is h eld in flexion which may be secondary to positioning, extensor injury or chroni c contracture.
--- NOTE | ~2023-06-01 | XR_ITS ---
EXAM: XR pelvis 1-2V DATE: 06/01/2023 19:02 HISTORY: R lateral thigh bruising/pain from fall yesterday . COMPARISON: CT abdomen pelvis 04/18/2023. FINDINGS: Normal mineralization. No fracture or dislocation. No lytic or blastic lesion. Mild bilate ral hip osteoarthritis. Mild lumbar degenerative disc disease No erosion or periosteal change. Soft t issues within normal limits. IMPRESSION: No acute osseous finding in the pelvis. Reviewed, dictated and finalized at location K. TER OPERATOR
--- NOTE | 2023-06-01 18:06 | ED.FALL ---
HPI - Fall General Chief Complaint: Fall Stated Complaint: fall/ R pinky injry/hip pain Time Seen by Provider: 06/01/23 18:06 Source: patient Mode of arrival: ambulatory Limitations: no limitations History of Present Illness HPI Narrative: 38-year-old female with a history of smoking,anxiety /depression, chronic low back pain, kidney stones, chronic constipation presents to the ER after a fall yesterday with -- right lateral thigh pain/bruising -- right wrist finger PIP deformity no head injury. No loss of consciousness. No spinal injury. No ENT bleeding. MD complaint: fall Onset (ago): day(s) ( 1 day ago) Fall from: standing Fall witnessed: no Place fall occurred: home Loss of consciousness: none Prolonged down time: no Symptoms prior to fall: none Associated symptoms (after fall): denies Related Data Home Medications Medication Instructions Recorded Confirmed bupropion HCl 150 mg 24 hr tablet, 150 mg PO DAILY 05/26/23 06/01/23 extended release gabapentin 300 mg capsule 300 mg PO BID 05/26/23 06/01/23 hydroxyzine HCl 25 mg tablet 25 mg PO Q6H PRN Anxiety 06/01/23 06/01/23 Allergies Allergy/AdvReac Type Severity Reaction Status Date / Time ethinyl estradiol Allergy Intermediate Unknown Verified 06/01/23 18:14 [Seasonale (91)] levonorgestrel Allergy Intermediate Unknown Verified 06/01/23 18:14 [Seasonale (91)] Review of Systems Review of Systems: All systems reviewed & are unremarkable except as noted in HPI and below Constitutional: Constitutional: Reports as per HPI and Reports no additional constitutional complaints Eyes: Eyes: Reports as per HPI and Reports no additional eye complaints ENT: Reports system reviewed and no additional complaints, except as documented and Reports as per HPI Cardiovascular: Cardiovascular: Reports as per HPI and Reports no additional cardiovascular complaints Respiratory: Respiratory: Reports as per HPI and Reports no additional respiratory complaints Gastrointestinal: Gastrointestinal: Reports as per HPI and Reports no additional gastrointestinal complaints Genitourinary: Genitourinary: Reports no additional female genitourinary complaints Musculoskeletal: Musculoskeletal: Reports no additional musculoskeletal complaints and Reports as per HPI Integumentary/Breasts: Skin/Breast: Reports system reviewed and no additional complaints, except as docu Comments: Bruising right lateral thigh Neurologic: Reports system reviewed and no additional complaints, except as documented Psychiatric: Psychiatric: Reports no additional psychiatric complaints and Reports depression Endocrine: Endocrine: Reports no additional endocrine complaints and Reports as per HPI Hematologic/Lymphatic: Hematologic/Lymphatic: Reports no additional hematologic/lymphatic complaints and Reports as per HPI Allergic/Immunologic: Allergic/Immunologic: Reports no additional allergic/immunologic complaints and Reports as per HPI [facility] Past Medical History Medical History Anxiety and depression Chronic back pain Chronic constipation Kidney stones Surgical History Surgical History H/O cystoscopy kidney stone removal Social History Social History Years smoked: 30 Smoking status: Current every day smoker Tobacco type: cigarettes Alcohol intake: never Substance use: never Do You Feel Safe in your Home?: Yes Lack of Transportation: No Lack of Food: Never True Current Housing: I Have Housing Concerned About Future Housing: No Difficulty Paying Gas/Electric Bills: No Difficulty Paying for Meds: No Currently Unemployed: No Education: Bachelor's Degree Difficulty w/ Childcare or Family Care: No Spiritual care concerns: No Exam Const: General: ill appearing Orientation/consc
[2023-06-01 18:07] VITALS: BP 129/81; PULSE 84; RESP 19; TEMP 36.7; O2SAT 99
[2023-06-01] MEDS: ONDANSETRON HCL ODT 4 MG TABLET PO (18:35)
[2023-06-01] MEDS: HYDROmorphone HCL INJ (*CRX) 2 MG/ML VIAL 0.5 MG IM (18:36)
[2023-06-01 18:45] LABS: Pregnancy On Board Control Positive; Urine Pregnancy Test Negative
[2023-06-01 18:49] LABS: Bilirubin Urine 2+ (Negative); Blood Urine Negative (Negative); Color Urine Yellow (Yellow); Glucose Urine UA Negative (Negative); Ketones Urine 2+ (Negative); Leukocyte Esterase Ur Negative LEU/UL (Negative); Nitrate Urine Negative (Negative); Protein Urine 1+ (Negative); Specific Grav Ur >= 1.030 (1.010-1.020)
[2023-06-01 18:54] LABS: Add Urine Microscopic? YES; Appearance Urine Slightly Cloudy (Clear); RBC Urine 0-2 /hpf (0-2); Squamous Epithelial Cell Urine Many /hpf (Few); WBC Urine 0-3 /hpf (0-3)
[2023-06-01 18:55] LABS: Bacteria Urine 1+ /hpf; Mucus Urine Heavy /lpf
[2023-06-01] MEDS: KETOROLAC 30 MG/ML VIAL (*BKC) IM (19:24)
[2023-06-01 19:37] VITALS: BP 121/80; PULSE 78; RESP 20; O2SAT 97
--- NOTE | 2023-06-01 19:37 | PC.NURSE ---
pt refused finger splint
== END 2023-06-01 19:45 | disposition home or self-care (01) ==
PROVIDERS: Emergency Provider Internal Medicine Critical Care Medicine
DX: M21.241 Flexion deformity, right finger joints (principal); S70.11XA Contusion of right thigh, initial encounter; S60.051A Contusion of right little finger without damage to nail, initial encounter; F41.9 Anxiety disorder, unspecified; F32.A Depression, unspecified; F17.210 Nicotine dependence, cigarettes, uncomplicated; Z79.899 Other long term (current) drug therapy; W19.XXXA Unspecified fall, initial encounter; Y92.009 Unspecified place in unspecified non-institutional (private) residence as the place of occurrence of the external cause
CPT/HCPCS: 72170; 73130; 81001; 81025; 96372; 99284; A9270; J1170; J1885

== ENCOUNTER 2023-09-27 15:23 | Emergency (ER) | payer OTHER, SELFPAY ==
[2023-09-27] VITALS (16 sets, daily range): BP systolic 110–121; BP diastolic 78–85; PULSE 80–104; RESP 13–20; TEMP 36.3; O2SAT 96–100
--- NOTE | ~2023-09-27 | XR_ITS ---
EXAMINATION: XR chest 2V Exam Date/Time: 09/27/2023 18:04 CDT HISTORY: AMS/SOB x2 days Comparison: 03/24/2022. RESULT: Lines, tubes, and devices: None. Lungs and pleura: Clear. Granulomatous calcifications. Cardiomediastinal silhouette: Stable. Calcified nodes. Other: No acute osseous or upper abdominal finding. IMPRESSION: No acute cardiopulmonary process. Reviewed, dictated and finalized at location K.
--- NOTE | ~2023-09-27 | CT_ITS ---
EXAMINATION: CT brain wo con DATE: 09/27/2023 18:23 INDICATION: ams/dizziness/blurred vision/frontal headache x2 days . TECHNIQUE: Computed tomography (CT) of the head was performed without intravenous contrast. The mA wa s adjusted according to patient size. Iterative reconstruction technique was employed. The dose-lengt h product was 605.33 mGy-cm. COMPARISON: 11/28/2021. FINDINGS: No acute intracranial hemorrhage or extra-axial fluid collection. No hydrocephalus, mass, or herniation. No acute ischemic infarct. Unremarkable dural venous sinus attenuation. No acute osseous abnormality. Right maxillary mucosal thickening, the remaining aerated spaces are clear. IMPRESSION: No acute intracranial process. Reviewed, dictated and finalized at location K.
--- NOTE | 2023-09-27 16:02 | ECG_ITS ---
[address] Test Date: 2023-09-27 Pat Name: Mirna Rojas Department: Room: Gender: F [employer]: RES : 1985 Requested By: Omer Torrez Order Number: [id number] Reading MD: Jase Mcghee D.O. Measurements Intervals [place] Rate: 101 P: 68 WI: 112 QRS: 81 QRSD: 75 T: 78 QT: 330 QTc: 429 Interpretive Statements SINUS TACHYCARDIA WITH SHORT WI INTERVAL VOLTAGE CRITERIA FOR LVH MINIMAL Q WAVES- INF/LAT LEADS BORDERLINE ECG No previous ECG available for comparison Electronically Signed On 09-27-2023 17:02:03 CDT by Jase Mcghee D.O.
[2023-09-27 16:27] LABS: Basophils Absolute Auto 0.03 K/mm3 (0.00-0.10); Basophils Percent Auto 0.5 % (0.0-1.0); Eosinophils Absolute Auto 0.13 K/mm3 (0.02-0.50); Eosinophils Percent Auto 2.3 % (1.0-6.0); Hematocrit 39.8 % (35.0-49.0); Hemoglobin 12.8 g/dL (12.0-15.0); Immature Granulocyte Absolute 0.03 K/mm3 (0.00-0.00); Immature Granulocyte Percent A 0.5 % (0.0-0.0); Lymphocytes Absolute Auto 0.61 K/mm3 (1.10-4.50); Mean Corpuscular HGB Conc 32.2 g/dL (32-36); Mean Corpuscular Hemoglobin 29.2 pg (27.0-31.0); Mean Corpuscular Volume 90.7 fL (78.0-102.0); Mean Platelet Volume 10.1 fl (9.2-11.8); Monocytes Absolute Auto 0.31 K/mm3 (0.10-0.90); Monocytes Percent Auto 5.6 % (2.0-11.0); Neutrophils Absolute Auto 4.44 K/mm3 (1.70-7.20); Neutrophils Percent Auto 80.1 % (50.0-70.0); Platelet Count Result 217 K/mm3 (150-420); Red Blood Count 4.39 M/mm3 (4.20-5.40); Red Cell Distribution Width 13.9 % (11.6-14.4); White Blood Count 5.6 K/mm3 (4.8-10.8)
[2023-09-27 16:50] LABS: Alanine Aminotransferase 19 U/L (14-59); Albumin Level 3.5 g/dL (3.4-5.0); Alkaline Phosphatase 64 U/L (46-116); Anion Gap 9 mmol/L (4-12); Aspartate Amino Transferase 11 U/L (15-37); Bilirubin,Total 0.1 mg/dL (0.00-1.00); Blood Urea Nitrogen 10 mg/dL (7-18); Calcium 8.9 mg/dL (8.5-10.1); Carbon Dioxide 26 mmol/L (21-32); Chloride 103 mmol/L (98-108); Estimated CRCL calculation 84 ml/min; Estimated Glomerular Filt Rate > 60; Glucose 146 mg/dL (70-99); Osmolality Calculated 288 mOsm/kg (285-295); Potassium 3.3 mmol/L (3.5-5.1); Salicylate 2.6 mg/dL (2.8-20.0); Sodium 138 mmol/L (136-145); Total Protein 7.1 g/dL (6.4-8.2)
[2023-09-27 17:02] LABS: Acetaminophen 0 ug/mL (10-30); Ethanol < 3 mg/dL (0-6); Troponin I < 4.0 ng/L (0.00-60.4)
[2023-09-27] MEDS: POTASSIUM CHLORIDE 20 MEQ ER TABLET 40 MEQ PO (17:15)
[2023-09-27 17:51] LABS: Appearance Urine Sl Cloudy (Clear); Bilirubin Urine Negative (Negative); Blood Urine Negative (Negative); Color Urine Yellow (Yellow); Glucose Urine UA Negative (Negative); Ketones Urine Negative (Negative); Leukocyte Esterase Ur Negative LEU/UL (Negative); Nitrate Urine Negative (Negative); Protein Urine Negative (Negative); Specific Grav Ur >= 1.030 (1.010-1.020); Urobilinogen Urine 0.2 mg/dL (0.2-1.0)
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
[2023-09-27 17:56] LABS: Add Urine Microscopic? YES; Bacteria Urine 2+ /hpf; Pregnancy On Board Control Positive; RBC Urine 0-2 /hpf (0-2); Squamous Epithelial Cell Urine Many /hpf (Few); Urine Pregnancy Test Negative; WBC Urine 0-3 /hpf (0-3)
[2023-09-27 18:01] LABS: Amphetamine Screen Urine Positive (Negative); Barbiturate Screen Urine Negative (Negative); Benzodiazepines Screen Urine Negative (Negative); Cannabinoid Screen Urine Negative (Negative); Cocaine Screen Urine Negative (Negative); Methadone Screen Urine Negative (Negative); Opiate Screen Urine Negative (Negative); Phencyclidine Screen Urine Negative (Negative)
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
== END 2023-09-27 18:33 | disposition left against medical advice (07) ==
LOC: CHSED 16:20
PROVIDERS: Emergency Provider Emergency Medicine; PCP Nurse Practitioner Family
DX: R42 Dizziness and giddiness (principal); F41.8 Other specified anxiety disorders; F17.210 Nicotine dependence, cigarettes, uncomplicated
CPT/HCPCS: 36415; 70450; 71046; 80053; 80307; 81001; 81025; 84484; 85025; 93005; 99284; A9270

== ENCOUNTER 2023-11-26 15:38 | Emergency (ER) | payer OTHER, SELFPAY ==
[2023-11-26] VITALS (18 sets, daily range): BP systolic 115–143; BP diastolic 78–99; PULSE 90–116; RESP 16–24; TEMP 36.3–36.7; O2SAT 97–100
--- NOTE | ~2023-11-26 | CT_ITS ---
EXAMINATION: CT abdomen pelvis wo con DATE: 11/26/2023 16:59 INDICATION: Abdominal pain. TECHNIQUE: Computed tomography (CT) of the abdomen and pelvis was performed without intravenous contr ast. Automated exposure control and iterative reconstruction technique were employed. The dose-length product was 217.09 mGy-cm. COMPARISON: CT abdomen and pelvis 04/18/23 FINDINGS: The visualized portions of the lung bases are clear without pneumonia or pleural effusion. The heart size is normal. There are coronary artery calcifications. No pericardial effusion. The live r and gallbladder are normal. Calcifications in the spleen are consistent with old granulomatous dise ase. The pancreas and adrenal glands are normal. There is a 2 mm stone in right kidney. There are 2 s tones in left kidney measuring up to 3 mm. There are no dilated loops of bowel. The appendix is art l. There are no pathologically enlarged lymph nodes. There is no free intraperitoneal fluid. There is severe lumbar spondylosis. IMPRESSION: 1. Bilateral nonobstructing kidney stones. Reviewed, dictated and finalized at location A.
--- NOTE | 2023-11-26 15:44 | ED.ABDPAIN ---
HPI - Abdominal Pain General Chief Complaint: Abdominal Pain Stated Complaint: abd pain Time Seen by Provider: 11/26/23 15:44 Source: patient Mode of arrival: ambulatory Limitations: no limitations History of Present Illness HPI narrative: patient is a 38-year-old female with abdominal pain. This started yesterday. The pain is in her lower abdomen. She said she has not been moving much stool lately. She had a small BM yesterday. MD elicited complaint: abdominal pain Pertinent past history: constipation and kidney stones Onset (ago): day(s) (2) Pain Consistency: constant Location: RLQ, LLQ and suprapubic Severity: severe ( Patient claims severe but she is laying fairly still in bed) Pain scale (0-10): 10 Quality: cramping, stabbing and sharp Radiation: none Migration to: no migration Exacerbating factors: nothing Relieving factors: nothing Context: confirms history of similar episodes Associated symptoms: nausea and hematochezia Related Data Home Medications Medication Instructions Recorded Confirmed bupropion HCl 150 mg 24 hr tablet, 150 mg PO DAILY 05/26/23 06/01/23 extended release gabapentin 300 mg capsule 300 mg PO BID 05/26/23 06/01/23 hydroxyzine HCl 25 mg tablet 25 mg PO Q6H PRN Anxiety 06/01/23 06/01/23 Allergies Allergy/AdvReac Type Severity Reaction Status Date / Time ethinyl estradiol Allergy Intermediate Unknown Verified 06/01/23 18:14 [Seasonale (91)] levonorgestrel Allergy Intermediate Unknown Verified 06/01/23 18:14 [Seasonale (91)] Review of Systems Review of Systems: All systems reviewed & are unremarkable except as noted in HPI and below Constitutional: Constitutional: Reports no additional constitutional complaints Eyes: Eyes: Reports no additional eye complaints ENT: Reports system reviewed and no additional complaints, except as documented Cardiovascular: Cardiovascular: Reports no additional cardiovascular complaints Respiratory: Respiratory: Reports no additional respiratory complaints Gastrointestinal: Gastrointestinal: Reports no additional gastrointestinal complaints Genitourinary: Genitourinary: Reports no additional female genitourinary complaints Musculoskeletal: Musculoskeletal: Reports no additional musculoskeletal complaints Integumentary/Breasts: Skin/Breast: Reports system reviewed and no additional complaints, except as docu Neurologic: Reports system reviewed and no additional complaints, except as documented Psychiatric: Psychiatric: Reports no additional psychiatric complaints Endocrine: Endocrine: Reports no additional endocrine complaints Hematologic/Lymphatic: Hematologic/Lymphatic: Reports no additional hematologic/lymphatic complaints Allergic/Immunologic: Allergic/Immunologic: Reports no additional allergic/immunologic complaints PMFSH Past Medical History Medical History Anxiety and depression Chronic back pain Chronic constipation Kidney stones Surgical History Surgical History H/O cystoscopy kidney stone removal Social History Social History Years smoked: 30 Smoking status: Current every day smoker Tobacco type: cigarettes Alcohol intake: never Substance use: never Do You Feel Safe in your Home?: Yes Lack of Transportation: No Lack of Food: Never True Current Housing: I Have Housing Concerned About Future Housing: No Difficulty Paying Gas/Electric Bills: No Difficulty Paying for Meds: No Currently Unemployed: No Education: Bachelor's Degree Difficulty w/ Childcare or Family Care: No Spiritual care concerns: No Exam Const: General: healthy appearing Nutritional Appearance: well nourished Orientation/consciousness: patient oriented x3 HENMT: Head: normal to inspection Ears: external ears normal Face/Nose/Sinus: Normal
--- NOTE | 2023-11-26 16:14 | PC.NURSE ---
pt unsuccessful attempt to urinate.
[2023-11-26 16:21] LABS: Basophils Absolute Auto 0.02 K/mm3 (0.00-0.10); Basophils Percent Auto 0.1 % (0.0-1.0); Eosinophils Absolute Auto 0.04 K/mm3 (0.02-0.50); Eosinophils Percent Auto 0.3 % (1.0-6.0); Hematocrit 39.2 % (35.0-49.0); Hemoglobin 12.9 g/dL (12.0-15.0); Immature Granulocyte Absolute 0.06 K/mm3 (0.00-0.00); Immature Granulocyte Percent A 0.4 % (0.0-0.0); Lymphocytes Absolute Auto 1.66 K/mm3 (1.10-4.50); Lymphocytes Percent Auto 11.4 % (18.0-42.0); Mean Corpuscular HGB Conc 32.9 g/dL (32-36); Mean Corpuscular Hemoglobin 29.8 pg (27.0-31.0); Mean Corpuscular Volume 90.5 fL (78.0-102.0); Mean Platelet Volume 9.9 fl (9.2-11.8); Monocytes Absolute Auto 0.83 K/mm3 (0.10-0.90); Monocytes Percent Auto 5.7 % (2.0-11.0); Neutrophils Absolute Auto 11.94 K/mm3 (1.70-7.20); Neutrophils Percent Auto 82.1 % (50.0-70.0); Platelet Count Result 255 K/mm3 (150-420); Red Blood Count 4.33 M/mm3 (4.20-5.40); Red Cell Distribution Width 14.4 % (11.6-14.4); White Blood Count 14.6 K/mm3 (4.8-10.8)
[2023-11-26 16:38] LABS: Alanine Aminotransferase 15 U/L (14-59); Albumin Level 3.5 g/dL (3.4-5.0); Alkaline Phosphatase 74 U/L (46-116); Anion Gap 8 mmol/L (4-12); Aspartate Amino Transferase 10 U/L (15-37); Bilirubin,Total 0.4 mg/dL (0.00-1.00); Blood Urea Nitrogen 9 mg/dL (7-18); Calcium 8.5 mg/dL (8.5-10.1); Carbon Dioxide 29 mmol/L (21-32); Chloride 99 mmol/L (98-108); Estimated CRCL calculation 84 ml/min; Estimated Glomerular Filt Rate > 60; Glucose 83 mg/dL (70-99); Lipase 17 U/L (16-77); Magnesium 1.9 mg/dL (1.8-2.4); Osmolality Calculated 279 mOsm/kg (285-295); Potassium 3.2 mmol/L (3.5-5.1); Sodium 136 mmol/L (136-145); Total Protein 7.5 g/dL (6.4-8.2)
[2023-11-26 16:40] LABS: Serum Qual hCG Negative
[2023-11-26 16:41] LABS: SPREG INTERNAL CONTROL Positive
[2023-11-26] MEDS: SODIUM CHLORIDE 0.9% IV 1,000 ML 999 ML IV CONT (16:44)
[2023-11-26] MEDS: MORPHINE SULFATE (*CRX) 4 MG/ML INJ IV PUSH (16:44)
--- NOTE | 2023-11-26 16:53 | PC.NURSE ---
pt to xray via wheelchair.
--- NOTE | 2023-11-26 17:10 | PC.NURSE ---
1700 pt return to room.
--- NOTE | 2023-11-26 17:16 | PC.NURSE ---
pt sleeping, respirations even and unlabored. call wheatley in reach.
--- NOTE | 2023-11-26 18:05 | PC.NURSE ---
1800 woke up pt, informed of need for urine specimen. ambulated to bathroom. 1810 pt returned to room, urine specimen to lab.
[2023-11-26 18:16] LABS: Appearance Urine Cloudy (Clear); Bilirubin Urine Negative (Negative); Blood Urine 1+ (Negative); Color Urine Light Yellow (Yellow); Glucose Urine UA Negative (Negative); Ketones Urine Negative (Negative); Leukocyte Esterase Ur 1+ LEU/UL (Negative); Nitrate Urine Positive (Negative); Protein Urine 1+ (Negative)
[2023-11-26 18:24] LABS: Amphetamine Screen Urine Positive (Negative); Barbiturate Screen Urine Negative (Negative); Benzodiazepines Screen Urine Negative (Negative); Cannabinoid Screen Urine Positive (Negative); Cocaine Screen Urine Negative (Negative); Methadone Screen Urine Negative (Negative); Opiate Screen Urine Positive (Negative); Phencyclidine Screen Urine Negative (Negative)
[2023-11-26 18:33] LABS: Add Urine Microscopic? YES; Bacteria Urine 4+ /hpf; Squamous Epithelial Cell Urine Few /hpf (Few)
--- NOTE | 2023-11-26 19:08 | PC.NURSE ---
pt states has someone to pick her up from here.
--- NOTE | 2023-11-30 12:38 | PC.NURSE ---
URINE CULTURE REVIEWED FROM - STARTED ON CIPRO. NO CHANGE NEEDED PER DR HERNDON
== END 2023-11-26 18:56 | disposition home or self-care (01) ==
PROVIDERS: Emergency Provider Emergency Medicine; PCP Nurse Practitioner Family
DX: N30.01 Acute cystitis with hematuria (principal); F17.210 Nicotine dependence, cigarettes, uncomplicated
CPT/HCPCS: 36415; 74176; 80053; 80307; 81001; 83605; 83690; 83735; 84703; 85025; 87077; 87086; 87088; 87186; 96361; 96374; 99284; J2270; J7030

== ENCOUNTER 2023-11-30 01:40 | Emergency (ER) | payer OTHER, SELFPAY ==
--- NOTE | ~2023-11-30 | CT_ITS ---
EXAMINATION: CT abdomen pelvis wo con DATE: 11/30/2023 02:32 INDICATION: Right abdominal pain. TECHNIQUE: Computed tomography (CT) of the abdomen and pelvis was performed without intravenous contr ast. Automated exposure control and iterative reconstruction technique were employed. The dose-length product was 233.20 mGy-cm. COMPARISON: CT abdomen and pelvis 11/26/2023 FINDINGS: The visualized portions of the lung bases demonstrate a 3 mm nodule left lower lobe, likely benign. No pleural effusion. The heart size is normal. No pericardial effusion. There are coronary a rtery calcifications. The liver and gallbladder are normal. Calcifications in the spleen are consiste nt with old granulomatous disease. The pancreas and adrenal glands are normal. There is a 2 mm stone in right kidney. There are 2 stones in left kidney measuring up to 3 mm. There are no dilated loops o f mainly bowel. The appendix is normal. There is fat stranding in right paracolic gutter. There are n o pathologically enlarged lymph nodes. There is no free intraperitoneal fluid. There is severe lower lumbar spondylosis. IMPRESSION: 1. Fat stranding in right paracolic gutter, consistent with edema versus inflammation. 2. Bilateral nonobstructing kidney stones. Reviewed, dictated and finalized at location A. IMPRESSION: 1. Fat stranding in right paracolic gutter, consistent with edema versus inflam mation. 2. Bilateral nonobstructing kidney stones.
[2023-11-30 01:40] VITALS: BP 146/100; PULSE 78; RESP 18; TEMP 36.9; O2SAT 100
--- NOTE | 2023-11-30 01:54 | ED.ABDPAIN ---
HPI - Abdominal Pain General Chief Complaint: Abdominal Pain Stated Complaint: Rt sided pain Time Seen by Provider: 11/30/23 01:54 Source: patient Mode of arrival: ambulatory Limitations: no limitations History of Present Illness HPI narrative: Patient is a 38-year-old female with right-sided flank pain for the past day. The pain is getting worse so she came to the ER for evaluation. The pain is a moving type pain from around the side to the front. She has a history of kidney stones. She was in the ER the other night for abdominal pain which the workup was negative. Patient has IBS. MD elicited complaint: abdominal pain Pertinent past history: other ( Kidney stones) Onset (ago): day(s) (1) Pain Consistency: constant Location: RLQ and R flank Severity: severe Pain scale (0-10): 8 Quality: cramping, stabbing and sharp Radiation: RLQ and R flank Migration to: RLQ and R flank Exacerbating factors: nothing Relieving factors: nothing Context: confirms history of similar episodes Associated symptoms: nausea Related Data Home Medications Medication Instructions Recorded Confirmed bupropion HCl 150 mg 24 hr tablet, 150 mg PO DAILY 05/26/23 06/01/23 extended release gabapentin 300 mg capsule 300 mg PO BID 05/26/23 06/01/23 hydroxyzine HCl 25 mg tablet 25 mg PO Q6H PRN Anxiety 06/01/23 06/01/23 Allergies Allergy/AdvReac Type Severity Reaction Status Date / Time ethinyl estradiol Allergy Intermediate Unknown Verified 06/01/23 18:14 [Seasonale (91)] levonorgestrel Allergy Intermediate Unknown Verified 06/01/23 18:14 [Seasonale (91)] Review of Systems Review of Systems: All systems reviewed & are unremarkable except as noted in HPI and below Constitutional: Constitutional: Reports no additional constitutional complaints Eyes: Eyes: Reports no additional eye complaints ENT: Reports system reviewed and no additional complaints, except as documented Cardiovascular: Cardiovascular: Reports no additional cardiovascular complaints Respiratory: Respiratory: Reports no additional respiratory complaints Gastrointestinal: Gastrointestinal: Reports no additional gastrointestinal complaints Genitourinary: Genitourinary: Reports no additional female genitourinary complaints Musculoskeletal: Musculoskeletal: Reports no additional musculoskeletal complaints Integumentary/Breasts: Skin/Breast: Reports system reviewed and no additional complaints, except as docu Neurologic: Reports system reviewed and no additional complaints, except as documented Psychiatric: Psychiatric: Reports no additional psychiatric complaints Endocrine: Endocrine: Reports no additional endocrine complaints Hematologic/Lymphatic: Hematologic/Lymphatic: Reports no additional hematologic/lymphatic complaints Allergic/Immunologic: Allergic/Immunologic: Reports no additional allergic/immunologic complaints PMFSH Past Medical History Medical History Anxiety and depression Chronic back pain Chronic constipation Kidney stones Surgical History Surgical History H/O cystoscopy kidney stone removal Social History Social History Years smoked: 30 Smoking status: Current every day smoker Tobacco type: cigarettes Alcohol intake: never Substance use: never Do You Feel Safe in your Home?: Yes Lack of Transportation: No Lack of Food: Never True Current Housing: I Have Housing Concerned About Future Housing: No Difficulty Paying Gas/Electric Bills: No Difficulty Paying for Meds: No Currently Unemployed: No Education: Bachelor's Degree Difficulty w/ Childcare or Family Care: No Spiritual care concerns: No Exam Const: General: healthy appearing Nutritional Appearance: well nourished Orientation/consciousness: patient oriented x3 HENMT: He
--- NOTE | 2023-11-30 02:05 | PC.NURSE ---
URINE GIVEN TO LAB WHILE SHE WAS AT THE BEDSIDE
[2023-11-30] MEDS: KETOROLAC 30 MG/ML VIAL (*BKC) IV PUSH (02:08)
[2023-11-30 02:11] LABS: Add Urine Microscopic? YES; Basophils Absolute Auto 0.02 K/mm3 (0.00-0.10); Basophils Percent Auto 0.3 % (0.0-1.0); Bilirubin Urine Negative (Negative); Blood Urine 2+ (Negative); Color Urine Yellow (Yellow); Eosinophils Absolute Auto 0.14 K/mm3 (0.02-0.50); Eosinophils Percent Auto 1.8 % (1.0-6.0); Glucose Urine UA Negative (Negative); Hematocrit 35.8 % (35.0-49.0); Hemoglobin 11.6 g/dL (12.0-15.0); Immature Granulocyte Absolute 0.04 K/mm3 (0.00-0.00); Immature Granulocyte Percent A 0.5 % (0.0-0.0); Ketones Urine Negative (Negative); Leukocyte Esterase Ur Negative LEU/UL (Negative); Lymphocytes Absolute Auto 1.77 K/mm3 (1.10-4.50); Lymphocytes Percent Auto 22.1 % (18.0-42.0); Mean Corpuscular HGB Conc 32.4 g/dL (32-36); Mean Corpuscular Hemoglobin 29.4 pg (27.0-31.0); Mean Corpuscular Volume 90.9 fL (78.0-102.0); Mean Platelet Volume 10.1 fl (9.2-11.8); Monocytes Absolute Auto 0.62 K/mm3 (0.10-0.90); Monocytes Percent Auto 7.8 % (2.0-11.0); Neutrophils Absolute Auto 5.41 K/mm3 (1.70-7.20); Neutrophils Percent Auto 67.5 % (50.0-70.0); Nitrate Urine Negative (Negative); Platelet Count Result 290 K/mm3 (150-420); Protein Urine Negative (Negative); Red Blood Count 3.94 M/mm3 (4.20-5.40); Red Cell Distribution Width 13.9 % (11.6-14.4); Specific Grav Ur 1.025 (1.010-1.020); Urobilinogen Urine 0.2 mg/dL (0.2-1.0); pH Urine 6.5 (5.0-8.0)
[2023-11-30 02:17] LABS: Appearance Urine Sl Cloudy (Clear); Bacteria Urine 1+ /hpf; Mucus Urine Few /lpf; Squamous Epithelial Cell Urine Few /hpf (Few); WBC Urine None seen /hpf (0-3)
[2023-11-30 02:18] LABS: Pregnancy On Board Control Positive; Urine Pregnancy Test Negative
--- NOTE | 2023-11-30 02:20 | PC.NURSE ---
PATIENT BEING TRANSPORTED TO CT VIA STRETCHER
[2023-11-30 02:22] LABS: Partial Thromboplastin Time 28.2 Sec (23.9-30.70); Prothrombin Time 10.5 Seconds (9.50-12.1)
[2023-11-30 02:25] LABS: Albumin Level 3.1 g/dL (3.4-5.0); Alkaline Phosphatase 73 U/L (46-116); Anion Gap 9 mmol/L (4-12); Aspartate Amino Transferase 13 U/L (15-37); Bilirubin,Total 0.2 mg/dL (0.00-1.00); Blood Urea Nitrogen 14 mg/dL (7-18); Calcium 9.2 mg/dL (8.5-10.1); Carbon Dioxide 29 mmol/L (21-32); Chloride 103 mmol/L (98-108); Estimated CRCL calculation 78 ml/min; Estimated Glomerular Filt Rate > 60; Glucose 104 mg/dL (70-99); Lipase 28 U/L (16-77); Osmolality Calculated 292 mOsm/kg (285-295); Sodium 141 mmol/L (136-145); Total Protein 7.3 g/dL (6.4-8.2)
[2023-11-30 02:28] LABS: Lactic Acid Reflex 0.7 mmol/L (0.4-2.0)
--- NOTE | 2023-11-30 02:28 | PC.NURSE ---
PATIENT RETURNED FROM CT. CURRENTLY NO YELLING OUT IN PAIN. CALM AND QUIET. SIGNIFICANT OTHER NOT AT THE BEDSIDE. CALL LIGHT IN REACH
[2023-11-30 02:33] VITALS: BP 134/87; PULSE 64; RESP 18; O2SAT 100
[2023-11-30 02:34] LABS: Alanine Aminotransferase 27 U/L (14-59)
[2023-11-30 03:11] VITALS: BP 117/77; PULSE 78; RESP 18; O2SAT 98
--- NOTE | 2023-11-30 03:14 | PC.NURSE ---
RESTING QUIETLY ON STRETCHER WITH SIGNIFICANT OTHER AT HER SIDE. CALL LIGHT IN REACH. WAITING CT RESULTS.
[2023-11-30 03:37] VITALS: BP 137/83; PULSE 66; RESP 20; O2SAT 99
[2023-11-30 04:06] VITALS: BP 105/70; PULSE 70; RESP 20; O2SAT 99
--- NOTE | 2023-11-30 04:24 | PC.NURSE ---
PATIENT IS RESTING QUIETLY ON STRETCHER WITH SIGNIFICANT OTHER AT HER SIDE. NO NEEDS VOICED. CALL LIGHT IN REACH
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
--- NOTE | 2023-11-30 04:47 | PC.NURSE ---
PATIENT AMBULATED WITHOUT DIFFICULTY TO THE BATHROOM
--- NOTE | 2023-11-30 05:04 | PC.NURSE ---
SIGNIFICANT OTHER HAS RETURNED. GYPSUM DECALER HAS WALKED WITH PATIENT OUT TO THE VEHICLE
== END 2023-11-30 05:05 | disposition home or self-care (01) ==
PROVIDERS: Emergency Provider Emergency Medicine
DX: K52.9 Noninfective gastroenteritis and colitis, unspecified (principal); F41.9 Anxiety disorder, unspecified; F32.A Depression, unspecified; F17.210 Nicotine dependence, cigarettes, uncomplicated
CPT/HCPCS: 36415; 74176; 80053; 81001; 81025; 83605; 83690; 85025; 85610; 85730; 96374; 99284; J1885

== ENCOUNTER 2024-04-15 17:42 | Emergency (ER) | payer OTHER, SELFPAY ==
--- NOTE | ~2024-04-15 | XR_ITS ---
EXAMINATION: XR hand LT min 3V DATE: 04/15/2024 18:31 INDICATION: Left hand fourth digit dislocation status post reduction. TECHNIQUE: 3 views of left hand were obtained. COMPARISON: Left hand radiographs at 5:59 PM FINDINGS: Alignment is normal. No fracture. Joint spaces are normal. IMPRESSION: 1. Normal alignment at fourth proximal interphalangeal joint status post reduction. Reviewed, dictated and finalized at location A. NURSE IMPRESSION: 1. Normal alignment at fourth proximal interphalangeal joint status post reduct ion.
--- NOTE | ~2024-04-15 | XR_ITS ---
EXAMINATION: XR hand LT min 3V DATE: 04/15/2024 18:06 INDICATION: Dislocation of left finger. TECHNIQUE: 3 views of left hand were obtained. COMPARISON: None. FINDINGS: There is palmar dislocation of fourth middle phalanx with respect to the proximal phalanx. No fracture. Other joint spaces are normal. IMPRESSION: 1. Dislocation of fourth proximal interphalangeal joint. Reviewed, dictated and finalized at location A. N SPLITTER
[2024-04-15 17:42] VITALS: BP 150/98; PULSE 102; RESP 22; TEMP 36.8; O2SAT 100
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
[2024-04-15] MEDS: LIDOCAINE 1% LOCAL INJ 10 ML VIAL 6 ML INFILTRATE (18:11)
== END 2024-04-15 18:47 | disposition home or self-care (01) ==
PROVIDERS: Emergency Provider Internal Medicine Critical Care Medicine; PCP Nurse Practitioner Family
DX: S63.255A Unspecified dislocation of left ring finger, initial encounter (principal); F17.210 Nicotine dependence, cigarettes, uncomplicated; W23.0XXA Caught, crushed, jammed, or pinched between moving objects, initial encounter
CPT/HCPCS: 26770; 73130; 99285; J2003

== ENCOUNTER 2024-06-17 03:29 | Emergency (ER) | payer OTHER, SELFPAY ==
--- OUTSIDE RECORDS SUMMARY | 2024-06-17 03:31 | XMS_ITS | Patient Health Record ---
Author Organization [facility] Address [address] [place] [address] Care Team Providers Care Diamond Die Driller Name Role Phone Isabella Mitchell Primary Care Provider Allergies No Known Allergies Reason For Referral No Information Medications Medication SIG (Take, Route, Frequency, Duration) Notes Start Date End Date Status Sertraline HCl 50 MG 1 tablet Orally Onc e a day at HS for 30 days 04/09/2023 Active Lidocaine 5 % 1 patch remove after 12 hours Externally Once a day Active Polyethylene Glycol 3350 17 GM/SCOOP 1 scoop mixed with 8 ounces of fluid Orally twice daily Active Prazosin HCl 1 MG 1 capsule at bedtime Orally Once a day Active hydrOXYzine Pamoate 50 MG 1 capsule at b edtime as needed Orally Once a day Active traZODone HCl 50 MG 1 tablet at bedtime as needed Orally Once a day Active Immunizations Vaccine Route Administration Date Status Comme nts TDAP VACCINE >7 IM Unknown 05/18/2010 Administered Social History Tobacco Use: Social History Observation Description Date Details (start date - stop date) Current Smoker NA - NA Tobacco Use/Smoking Question Answer Notes Are you a current smoker How often do you smoke cigarettes? every day How many cigarettes a day do you smoke? - Alcohol Screen (Audit-C) Question Answer Notes Did you have a drink containing alcohol in the p ast year? No Points 0 Interpretation Negative Sexual History Question Answer Notes Had sex in the past 12 months (vaginal, oral, or anal)? Yes with Men only Use protection? No Prevention strategies discussed: Condoms Have you ever had a Sexually transmitted disease ? No Tobacco use other than smoking: Question Answer Notes Are you an other tobacco user? No Problems Problem Type SNOMED Code ICD Code Onset Dates Problem Status W/U Status Risk Notes Problem 061284261 Anxiety disorder , unspecified (F41.9) Active confirmed Problem 724959018 Other insomnia (G47.09) Active confirmed Problem 72476290 Constipation, unspecified constipation type (K59.00) Active confirmed Problem 083965369 Methamphetamine addiction (F15.20) Active confirmed Problem 42570707 DDD (degenerativ e disc disease), lumbosacral (M51.37) Active confirmed Problem 84596940 Night terrors (F51.4) Active confirmed Problem 46218296 Depression, unspecified (F32.A) Active confirmed Plan Of Treatment No Information Insurance Providers Payer Name Payer Address Payer Phone Subscriber Number Group Number Insured Name Patient Relationship to Insured Coverage Start Date Coverage End Date [employer] [address] [place] [phone] [id number] Mirna Rojas Self - patient is the insured [employer] [address] [address] [place] [phone] [id number] Mirna Rojas Self - patient is the insured Medical (General) History Medical History History ICD Code Anxiety and Depression PTSD Surgical History Surgery Date(Month/Year) Kidney stone 2020 right finger joint 2020 Hospitalization History Reason Date(Month/Year) Kidney stones 2020
--- OUTSIDE RECORDS SUMMARY | 2024-06-17 03:31 | XMS_ITS ---
Author Organization [facility] Address [address] [place] [address] Care Team Providers Care Social Service Agency Director Name Role Phone Isabella Mitchell Primary Care Provider Allergies No Known Allergies REASON FOR VISIT est. care- Medication refills Medications Medication SIG (Take, Route, Frequency, Duration) [...] at bedtime Orally Once a day Active traZODone HCl 50 MG 1 tablet at bedtime as needed Orally Once a day Active hydrOXYzine Pamoate 50 MG 1 capsule at b edtime as needed Orally Once a day Active Social History Tobacco Use: Social History Observation Description Date Details (start date - stop date) Current Smoker NA - NA Tobacco Use/Smoking Question Answer Notes Are you a current smoker How often do you smoke cigarettes? every day How many cigarettes a day do you smoke? 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) Active confirmed Problem 443162408 Anxiety disorder , unspecified (F41.9) Active confirmed Problem 97408982 Depression, unspecified (F32.A) Active confirmed Problem 38967011 DDD (degenerativ e disc disease), lumbosacral (M51.37) Active confirmed Problem 49308016 Constipation, unspecified constipation type (K59.00) Active confirmed Problem 09126200 Night terrors (F51.4) Active confirmed Problem 025267711 Other insomnia (G47.09) Active confirmed Vital Signs Temperature 97 degrees Fahrenheit 04/09/2023 Blood pressure systolic 112 mm Hg 04/09/20 23 Blood pressure diastolic 72 mm Hg 023 Heart Rate 98 /min 04/09/2023 Respiratory Rate 18 /min 04/09/2023 Height 65 in 04/09/2023 Weight 151 lbs 04/09/2023 BMI 25.12 kg/m2 04/09/2023 Oximetry 98 % 04/09/2023 Height-cm 165.1 cm 04/09/2023 Weight-kg 68.49 kg 04/09/2023 Encounters Encounter Location Date Provider Diagnosis [address] [address] 04/09/2023 Isabella Mitchell Methamphetamine addiction F15.20 ; Anxiety disorder, unspecified F41.9 ; Depression, unspecified F32.A ; BMI 25.0-25.9,adult Z68.25 ; Exercise counseling Z71.82 ; Dietary counseling Z71.3 ; Tobacco abuse Z72.0 ; Tobacco abuse counseling Z71.6 ; Night terrors F51.4 ; Constipation, unspecified constipation type K59.00 ; DDD (degenerative disc disease), lumbosacral M51.37 and Other insomnia G47.09 Assessments Encounter Date Diagnosis (ICD Code) Assessment Notes Treatment Notes Treatment Clinical Notes Section Notes 04/09/2023 Methamphetamine addiction (ICD-10 - F15.20) 04/09/2023 Anxiety disorder, unspecified (ICD-10 - F41.9) 04/09/2023 Depression, unspecified (ICD-10 - F32.A) 04/09/2023 BMI 25.0-25.9,adult (ICD-10 - Z68.25) 04/09/2023 Exercise counseling (ICD-10 - Z71.82) 04/09/2023 Dietary counseling (ICD-10 - Z71.3) 04/09/2023 Tobacco abuse (ICD-10 - Z72.0) 04/09/2023 Tobacco abuse counseling (ICD-10 - Z71.6) 04/09/2023 Night terrors (ICD-10 - F51.4) 04/09/2023 Constipation, unspecified constipation type (ICD-10 - K59.00) 04/09/2023 DDD (degenerative disc disease), lumbosacral (ICD-10 - M51.37) 04/09/2023 Other insomnia (ICD-10 - G47.09) Plan Of Treatment Medication Medication Name Sig Start Date Stop Date Notes Sertraline HCl 50 MG 1 tablet Orally Onc e a day at HS for 30 days 04/09/2023 Lidocaine 5 % 1 patch remove after 12 hours Externally Once a day Polyethylene Glycol 3350 17 GM/SCOOP 1 scoop mixed with 8 ounces of fluid Orally twice daily Prazosin HCl 1 MG 1 capsule at bedtime Orally Once a day traZODone HCl 50 MG 1 tablet at bedtime as needed Orally Once a day hydrOXYzine Pamoate 50 MG 1 capsule at b edtime as needed Orally Once a day Progress Notes * Mirna ROJASDOB:[birth year] (37 yo F)Acc No.[id number]:04/09/2023 Progress Notes Patient: Mirna Youngblood Provider: Noelle Mitchell :1985 A ge:37 Y S ex:Female Date:04/09/2023 Address:[address] [place], [place] [id number] Check In:01:57 PM CSTCheck O ut:02:42 PM 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 care- Medication refills * HPI: N ew/Follow-up Patient Consult: Jannet is a 37-year old female with a PMHx of Methamphetamine addiction, DDD, PTSD, depression and anxiety, constipation, and insomnia is presenting to the clinic at [facility] for medication adjustments and prescriptions. She reports she was at [facility] for 1 week and then here at [facility] for 3 weeks. She presents for refills on Lidocaine patch, MiraLax, Hydroxyzine, Trazodone. D epression Screening: PHQ-9 L ittle interest or pleasure in doing things?Not at all F eeling down, depressed, or hopeless N ot at all T rouble falling or staying asleep, or sleeping too much N ot at all F eeling tired or having little energy N ot at all P oor appetite or overeating N ot at all F eeling bad about yourself or that you are a failure, or have let yourself or your family down N ot at all T rouble concentrating on things, such as reading the newspaper or watching television N ot at all M oving or speaking so slowly that other people could have noticed; or the opposite, being so fidgety or restless that you have been moving around a lot more than usual N ot at all T houghts that you would be better off or of hurting yourself in some way N ot at all T otal Score 0 D epression Screening: PHQ-2 (2015 Edition) L ittle interest or pleasure in doing things??Not at all F eeling down, depressed, or hopeless? N ot at all T otal Score 0 * ROS: G eneral/Constitutional: Denies C hange in appetite. D enies F atigue. D enies F ever. D enies H eadache. A llergy/Immunology: Denies C ongestion. D enies S neezing. D enies?Watery eyes. O phthalmologic: Denies D ischarge. D enies R ed eye. ? R espiratory: Denies C hest pain. D enies C ough. D enies?Shortness of breath with exertion. D enies W heezing. C ardiovascular: Denies C hest pain. D enies D izziness. D enies?Palpitations. S welling in hands/feet d enies. G astrointestinal: Denies A bdominal pain. D enies B lood in stool.?Denies C hange in bowel habits. D enies C onstipation. D enies D iarrhea.?Denies H eartburn. D enies N ausea. D enies V omiting. D enies W eight loss. G enitourinary: Denies B lood in urine. D enies D ifficulty urinating. D enies F requent urination. D enies P ain in lower back. D enies P ainful urination. S kin: Denies I tching. D enies M ole(s). D enies R ly. D enies S kin lesion(s). N eurologic: Denies L oss of strength. D enies S eizures. D enies T ingling/Numbness. P sychiatric: Admits A nxiety. A dmits D epressed mood. A dmits S ubstance abuse, t hat is for nonprescription medication(s) methamphetamine. D enies?Suicidal thoughts. * Medical History: * Surgical History: Lila garcia stone ight finger joint 2020 * Hospitalization/Major Diagno stic Procedure: Lila garcia stones 2020 * Family History: F ather: , diagnosed with Heart Dz. M other: alive, diagnosed with Diabetes, Heart Dz, Cancer. 1 sister(s) . 1 daughter(s) - healthy. . Sister thyroid. * Social History: T obacco Use: T obacco Use/Smoking A re you a c urrent smoker H ow often do you smoke cigarettes? e very day H ow many cigarettes a day do you smoke? 1 1-20 Tobacco use other than smoking A re you an other tobacco user? N o Are you a second hand smoker? A re you a second hand smoker? N o P CMH: A DULT E ducation: H igh school diploma/GED E mployment: F ull time D o you understand spoken thai? Y es C ommunication needs (hearing, visual or cognitive): N o G ood ability to interact with other people:?Yes R eviewed/Updated 1 06/10/2022 S exual History: S exual History H ad sex in the past 12 months (vaginal, oral, or anal)? Y es w ith M en only U se protection? N o P revention strategies discussed: C ondoms H ave you ever had a Sexually transmitted disease? N o Details of Sexual History A re you sexually active? Y es A re you having any sexual problems? N o H ave you had any sexually transmitted diseases (STDs)? N o Sexual Abuse H istory: n one D rugs/Alcohol: D rugs H ave you used drugs other than those for medical reasons in the past 12 months? Y es A re you in a treatment program? Y es r elapse prevention discussed? Y es N french of program: F GC T ype of program: R esidential treatment H ave ever injected drugs? N o A re you still using? N o I s there a minor (18 years or younger) at risk at home? N o M ethamphetamine? Y es Alcohol Screen (Audit-C) D id you have a drink containing alcohol in the past year? N o P oints 0 I nterpretation N egative Caffeine I ntake: m ore than 4 cups per day * Medications: T akingLidocaine 5 % Patch 1 patch remove after 12 hours Externally Once a dayPolyethylene Glycol 3350 17 GM/SCOOP Powder 1 scoop mixed with 8 ounces of fluid Orally twice dailyPrazosin HCl 1 MG Capsule 1 capsule at bedtime Orally Once a dayhydrOXYzine Pamoate 50 MG Capsule 1 capsule at bedtime as needed Orally Once a daytraZODone HCl 50 MG Tablet 1 tablet at bedtime as needed Orally Once a dayMedication List reviewed and reconciled with the patientTaking Lidocaine 5 % Patch 1 patch remove after 12 hours Externally Once a dayTaking Polyethylene Glycol 3350 17 GM/SCOOP Powder 1 scoop mixed with 8 ounces of fluid Orally twice dailyTaking Prazosin HCl 1 MG Capsule 1 capsule at bedtime Orally Once a dayTaking hydrOXYzine Pamoate 50 MG Capsule 1 capsule at bedtime as needed Orally Once a dayTaking traZODone HCl 50 MG Tablet 1 tablet at bedtime as needed Orally Once a dayMedication List reviewed and reconciled with the patient * Allergies: N .K.D.A.no[Allergies Verified] Objective: * Vitals: Wt 151 lbs 04/09/2023 02:29:01 PM WOOD TYPE FINISHER Wt-kg* 68.49 kg 04/09/2023 02:29:01 PM WOOD TYPE FINISHER Alexandra F orrester PRACTICE COORDINATOR Ht* 65 in 04/09/2023 02:29:01 PM WOOD TYPE FINISHER Alexandra F orrester PRACTICE COORDINATOR Ht-cm* 165.1 cm 04/09/2023 02:29:01 PM WOOD TYPE FINISHER Alexandra F orrester PRACTICE COORDINATOR BMI* 25.12 Index 04/09/2023 02:29:01 PM WOOD TYPE FINISHER Alexandra F orrester PRACTICE COORDINATOR BP* 112/72 mm Hg 04/09/2023 02:29:01 PM WOOD TYPE FINISHER Alexandra F orrester PRACTICE COORDINATOR Temp* 97 F 04/09/2023 02:29:01 PM WOOD TYPE FINISHER Alexandra F orrester PRACTICE COORDINATOR HR* 98 /min 04/09/2023 02:29:01 PM WOOD TYPE FINISHER Alexandra F orrester PRACTICE COORDINATOR RR* 18 /min 04/09/2023 02:29:01 PM WOOD TYPE FINISHER Alexandra F orrester PRACTICE COORDINATOR Oxygen sat %* 98 % 04/09/2023 02:29:01 PM WOOD TYPE FINISHER Alexandra F orrester PRACTICE COORDINATOR * Examination: G eneral Examination: GENERAL APPEARANCE: a lert, well hydrated, in no distress .? EYES: p upils equal, round, reactive to light and accommodation, extraocular movement full and smooth. NOSE: N o nasal discharge. ORAL CAVITY: m ucosa moist. THROAT: n o erythema, no exudate, no postnasal drainage.? NECK/THYROID: n o thyromegaly, no lymphadenopathy. SKIN: n o rashes. HEART: S 1, S2 normal, no murmurs. LUNGS: c lear to auscultation bilaterally, no wheezes, no rales,no rhonchi. ABDOMEN: s oft, nontender, nondistended. EXTREMITIES: n o edema. NEUROLOGIC: n ormal strength, tone and reflexes, normal gait. Assessment: * Assessment: 1. A nxiety disorder, unspecified - F41.9 (Primary) 2 . M ethamphetamine addiction - F15.20 3 . D epression, unspecified - F32.A 4 . B NM 25.0-25.9,adult - Z68.25 5 .?Exercise counseling - Z71.82 6 . D ietary counseling - Z71.3 7 . T obacco abuse - Z72.0 8 . T obacco abuse counseling - Z71.6 9 . N ight terrors - F51.4 1 0.?Constipation, unspecified constipation type - K59.00 1 1. D DD (degenerative disc disease), lumbosacral - M51.37 1 2. O ther insomnia - G47.09 Plan: * Treatment: 2. D epression, unspecified Start Sertraline HCl Tablet, 50 MG, 1 tablet, Orally, Once a day at HS, 30 days, 30, Refills 1.? 3. N ight terrors Refill Prazosin HCl Capsule, 1 MG, 1 capsule at bedtime, Orally, Once a day. 4. C onstipation, unspecified constipation type Refill Polyethylene Glycol 3350 Powder, 17 GM/SCOOP, 1 scoop mixed with 8 ounces of fluid, Orally, twice daily. 5. D DD (degenerative disc disease), lumbosacral Refill Lidocaine Patch, 5 %, 1 patch remove after 12 hours, Externally, Once a day. 6. O ther insomnia Refill traZODone HCl Tablet, 50 MG, 1 tablet at bedtime as needed, Orally, Once a day. * Procedure Codes: G 8431 CLIN DEPRESSION SCREEN [id number] Pt scrn tbco and id as [id number] Pt recv tbco cess interv * Preventive Medicine: YOUR PREVENTIVE WELLNESS PLAN: O ral Health: The recommended frequency for dental check-ups is: e very 6 months Last dental check-up was: m ore than a year ago Intervention: e ncouraged pt to make appointment with their dentist or with a dentist at [facility] Education handouts provided: L earning about Dental Care Counseling: C are goal follow-up plan: BMI management provided Y es Exercise Counseling Provided- Y es Nutrition/Dietary Counseling provided?Yes Above Normal BMI Follow-up G iving encouragement to exercise, Lifestyle education regarding diet C ommunication to patient: Counseled the Patient on smoking effects; education provided 1 06/10/2022 S MOKING: Patient counselled on the dangers of tobacco use and urged to quit. 1 06/10/2022 * * TYPE FINISHER Sign off status: Completed Visit Status: C HK (Check Out) true * Provider: Noelle Mitchell Date: 1 06/10/2022 Generated for Amos johnson/Yazmin/Keith on: 0 06/17/2024 03:31 AM WOOD TYPE FINISHER History and Physical Notes * HPI (History of Present Illness) Category Sub-Category Detail Notes Category Not es Depression Screening PHQ-9 Little inte rest or pleasure in doing things: Not at all Feeling down, depressed, or hopeless: No t at all Trouble falling or staying asleep, or sl eeping too much: Not at all Feeling tired or having little energy: N ot at all Poor appetite or overeating: Not at all Feeling bad about yourself o r that you are a failure, or have let yourself or your family down: Not at all Trouble concentrating on thi ngs, such as reading the newspaper or watching television: Not at all Moving or speaking so slowly that other people could have noticed; or the opposite, being so fidgety or restless that you have been moving around a lot more than usual: Not at all Thoughts that you would be b meet off or of hurting yourself in some way: Not at all Total Score: 0 Depression Screening PHQ-2 (2015 Edition) Little interest or pleasure in doing things?: Not at all Feeling down, depressed, or hopeless?: N ot at all Total Score: 0 Examination Category Sub-Category Detail Notes Category Not es General Examination GENERAL APPEARANCE: alert, w ell hydrated, in no distress EYES: pupils equal, round, reactive to light and accommodation, extraocular movement full and smooth EARS: NOSE: No nasal discharge THROAT: no erythema, no exud ate, no postnasal drainage NECK/THYROID: no thyromegaly, no l ymphadenopathy HEART: S1, S2 normal, no mu rmurs LUNGS: clear to auscultatio n bilaterally, no wheezes, no rales,no rhonchi ABDOMEN: soft, nontender, non distended NEUROLOGIC: normal strength, ton e and reflexes, normal gait SKIN: no rashes EXTREMITIES: no edema ORAL CAVITY: mucosa moist
--- OUTSIDE RECORDS SUMMARY | 2024-06-17 03:31 | XMS_ITS | Clinical Summary ---
Author Organization [facility] Address [facility] [place] [address] Care Team Providers Care Instructional Media Services Technician Name Role Phone None, Provider MD Primary Care Provider Unavaila ble Allergies No known active allergies Medications No known medications Active Problems Problem Noted Date Diagnosed Date Sepsis secondary to UTI ([facility] 2019 Family History Medical History Relation Comments CHF Father Cancer Mother Heart Disease Mother Thyroid Disease Mother Relation Status Comments Father Mother Social History Tobacco Use Types Packs/Day Years Used Date Smoking Tobacco: Every Day Cigarettes 1 20 Smokeless Tobacco: Never Alcohol Use Standard Drinks/Week Comments Not Currently 0 (1 standard drink = 0.6 oz pur e alcohol) Hunger Vital Sign Answer Date Recorded Within the past 12 months, y ou worried that your food would run out before you got the money to buy more. Never true 01/24/20 20 Within the past 12 months, t he food you bought just didn't last and you didn't have money to get more. 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 Gender Identity Not on file Sexual Orientation Not on file Last Filed Vital Signs Vital Sign Reading Time Taken Comments Blood Pressure 149/101 11/09/2023 2:45 AM CDT Pulse 82 11/09/2023 2:45 AM CDT Temperature 36.7 C (98 F) 11/09/2023 2:45 AM CDT Respiratory Rate 24 11/09/2023 2:45 AM CDT Oxygen Saturation 100% 11/09/2023 2:45 AM CDT Inhaled Oxygen Concentration - - Weight 54.4 kg (120 lb) 11/09/2023 2:45 AM CDT Height 162.6 cm (5' 4 ) 11/09/2023 2:45 AM CDT Body Mass Index 20.6 11/09/2023 2:45 AM CDT Plan of Treatment Health Maintenance Due Date Last Done Comments Cervical Cancer Screening Pa p Smear (Age 30 to 64) Every 3 Years 1983 Annual Physical 1986 Pneumococcal Vaccine: Pediat rics (0 to 5 Years) and At-Risk Patients (6 to 64 Years) (1 of 2 - PCV) 1989 Hepatitis C 2001 Hepatitis B Vaccines (1 of 3 - 19+ 3-dose series) 2002 Cervical Cancer Screening Pa p with HPV Testing (Age 30 to 64) Every 5 Years 2013 Cervical Cancer Screening with HPV 2013 DTaP, Tdap and Td Vaccines ( 2 - Td or Tdap) 05/18/2020 05/18/2010 Mammogram Screening 2023 COVID-19 Vaccine (2023-2 5 season) 2023 Influenza Adult (#1) 2024 HPV Vaccines Aged Out No longer eligi ble based on patient's age to complete this topic Meningococcal B Vaccine Aged Out No l onger eligible based on patient's age to complete this topic Meningococcal Vaccine Aged Out No beatriz verónica eligible based on patient's age to complete this topic RSV Immunizations Under 20 Months Aged Out No longer eligible based on patient's age to complete this topic Medical Devices Implanted Type Area Bobbin Washer Device Identifier Shelf Expiration Date Model / Serial / Lot Stent Cook Ureteral Filaform 6 Fr X 24cm - Sn/A Implanted:Qty: 1 on 01/24/2020 by Murali Heard MD at [facility] Right: [employer] 10/14/2022 [id number] / N/A / [id number] Insurance [facility] Advance Directives * Full Code (Latest Code Status on File) Date Activated Date Inactivated Comments 02/23/2020 2:58 PM 02/23/2020 6:05 PM * Full Code Date Activated Date Inactivated Comments 01/23/2020 11:16 PM 01/27/2020 2:30 PM Care Teams Instructional Media Services Technician Relationship Specialty Start Date End Date None, Provider, MD PCP - General UNKNOWN PHYSICIAN SPECIALTY 03/25/23
--- OUTSIDE RECORDS SUMMARY | 2024-06-17 03:31 | XMS_ITS | Encounter Summary ---
Author Organization [facility] Address [address] [place] [address] Care Team Providers Care Equipment Associate Name Role Phone Latrice Zazueta MD Primary Care Provider [phone] Clovis Vela MD Primary Care Provider [phone] None, Provider Primary Care Provider Unavaila ble Encounter Details Date Type Department Care Team (Late st Contact Info) Description 10/04/2018 Abstract [facility] CONVERSION [address] [place] [address] , Generic Conversion, Social History Tobacco Use Types Packs/Day Years Used Date Smoking Tobacco: Never Assessed Comments Unknown Sex and Gender Information Value Date Recorded Sex Assigned at Not on file Legal 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 Gender Identity Not on file Sexual Orientation Not on file documented as of this encounter Plan of Treatment Not on file documented as of this encounter Visit Diagnoses Not on filedocumented in this encounter Additional Health Concerns Infection Onset Date Last Indicated Resolved Time COVID-19 Rule Out 02/20/2020 02/20/2020 02/21/2020 3:06 PM CDT documented as of this encounter Care Teams Equipment Associate Relationship Specialty [place] [address] [place], [place] [id number] PCP - General INTERNAL MEDICINE 04/24/19 02/18/20 [place] [address] [place] [address] PCP - General FAMILY PRACTICE 02/19/20 03/24/23 None, Provider, PCP - General UNKNOWN PHYSICIAN SPECIALTY 03/25/23 documented as of this encounter
--- OUTSIDE RECORDS SUMMARY | 2024-06-17 03:31 | XMS_ITS | Encounter Summary ---
Author Organization [facility] Address [address] [place] [address] Care Team Providers Care Personal Care Aide Name Role Phone Latrice Zazueta MD Primary Care Provider [phone] Clovsi Vela MD Primary Care Provider [phone] None, Provider Primary Care Provider Unavaila ble Encounter Details Date Type Department Care Team (Late st Contact Info) Description 01/28/2020 Hospital Follow-up Call [facility] [address] [place] [address] Ana Parker, RN Social History Tobacco Use Types Packs/Day Years [...] to get more. 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 No / Unsure 01/24/2020 7:07 PM CDT documented as of this encounter Functional Status * RETIRED Are you deaf or do you have serious difficulty hearing Answer Date of Assessment Author Status No 01/24/2020 12:07 AM CDT Acti ve * RETIRED Are you blind or do you have serious difficulty seeing, even when wearing glasses? Answer Date of Assessment Author Status No 01/24/2020 12:07 AM CDT Acti ve * Do you have serious difficulty walking or climbing stairs? Answer Date of Assessment Author Status No 01/24/2020 12:07 AM CDT Davide Johnson RN Active * Do you have difficulty dressing or bathing? Answer Date of Assessment Author Status No 01/24/2020 12:07 AM CDT Davide Johnson RN Active * Because of a physical, mental, or emotional condition, do you have difficulty doing errands alone such as visiting a doctor's office or shopping? Answer Date of Assessment Author Status No 01/24/2020 12:07 AM CDT Davide Johnson RN Active documented as of this encounter Mental Status * Because of a physical, mental, or emotional condition, do you have serious difficulty concentrating, remembering, or making decisions? Answer Entry Date Author Status No 01/24/2020 12:07 AM CDT Davide Johnson RN Active documented in this encounter Plan of Treatment Not on file documented as of this encounter Visit Diagnoses Not on filedocumented in this encounter Additional Health Concerns Infection Onset Date Last Indicated Resolved Time COVID-19 Rule Out 02/20/2020 02/20/2020 02/21/2020 3:06 PM CDT documented as of this encounter Care Teams Personal Care Aide Relationship Specialty Start [place] [address] [place] [address] PCP - General INTERNAL MEDICINE 04/24/19 02/18/20 [place] [address] [place] [address] PCP - General FAMILY PRACTICE 02/19/20 03/24/23 None, Provider, PCP - General UNKNOWN PHYSICIAN SPECIALTY 03/25/23 documented as of this encounter
--- OUTSIDE RECORDS SUMMARY | 2024-06-17 03:31 | XMS_ITS ---
Author Organization [facility] Address [address] [place] [address] Care Team Providers Care Endocrinology Physician Name Role Phone Isabella Mitchell Primary Care Provider Encounters Encounter Location Date Provider Diagnosis 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
--- OUTSIDE RECORDS SUMMARY | 2024-06-17 03:32 | XMS_ITS | Clinical Summary ---
Author Organization [facility] Physician Office Building [address] [place] [address] Care Team Providers Care Crime Prevention Police Officer Name Role Phone Latrice Zazueta MD Primary Care Provider +1 [phone] Allergies No known active allergies Medications traMADol (ULTRAM) 50 mg tablet Take 50 mg by mouth every 6 (six) hours Active sertraline (ZOLOFT) 100 mg tablet Take 100 mg by mouth 2 (two) times a day Active Active Problems No known active problems Medical History Medical History Date Comments Asthma Family History Medical History Relation Name Comments No Known Problems Father No Known Problems Mother No Known Problems Sister Relation Name Status Comments Father Mother Sister Social History Tobacco Use Types Packs/Day Years Used Date Smoking Tobacco: Never Smokeless Tobacco: Never Comments Unknown Sex and Gender Information Value Date Recorded Sex Assigned at Not on file Legal 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 Gender Identity Not on file Sexual Orientation Not on file Obstetrics History Last Filed Vital Signs Vital Sign Reading Time Taken Comments Blood Pressure 119/75 11/20/2018 10:39 AM CDT Pulse 71 11/20/2018 10:33 AM CDT Temperature 36.6 C (97.8 F) 11/20/2018 10:33 AM CDT Respiratory Rate 16 11/20/2018 10:33 AM CDT Oxygen Saturation 100% 11/20/2018 10:33 AM CDT Inhaled Oxygen Concentration - - Weight 61.2 kg (135 lb) 11/20/2018 10:33 AM CDT Height 153.2 cm (5' 0.3 ) 11/20/2018 10:33 AM CD T Body Mass Index 26.1 11/20/2018 10:33 AM CDT Plan of Treatment Not on file Insurance [facility] Care Teams Crime Prevention Police Officer Relationship Specialty Start Date End Date Latrice Zazueta MD PCP - General 11/20/18
--- OUTSIDE RECORDS SUMMARY | 2024-06-17 03:32 | XMS_ITS | Referral Summary ---
Author Organization [facility] Physician Office Building [address] [place] [address] Care Team Providers Care Machine Grainer Name Role Phone Latrice Zazueta MD Primary Care Provider +1 [phone] Allergies No known active allergies Medications traMADol (ULTRAM) 50 mg tablet Take 50 mg by mouth every 6 (six) hours Active sertraline (ZOLOFT) 100 mg tablet Take 100 mg by mouth 2 (two) times a day Active Active Problems No known active problems Social History Tobacco Use Types Packs/Day Years Used Date Smoking Tobacco: Never Smokeless Tobacco: Never Comments Unknown Sex and Gender Information Value Date Recorded Sex Assigned at Not on file 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
[2024-06-17 03:40] VITALS: BP 121/73; PULSE 97; RESP 16; TEMP 36.8; O2SAT 100
--- NOTE | 2024-06-17 03:48 | ED_ITS ---
HPI - General Adult General Chief complaint: Eye Problems Stated complaint: Eye Problem History of Present Illness HPI narrative: Mirna is a 39F with a PMH of anxiety and depression that presented to the ED with concerns of her left eye. There is a lot of watering, some discomfort and slight redness since she woke up yesterday. NO vision change or purulent discharge. No known trauma. She also reports a painful back right molar. Related Data Allergies Allergy/AdvReac Type Severity Reaction Status Date / Time ethinyl estradiol (Seasonale Allergy Intermediate Unknown Verified 06/17/24 03:38 (91)) levonorgestrel (Seasonale Allergy Intermediate Unknown Verified 06/17/24 03:38 (91)) Review of Systems Review of Systems: All systems reviewed & are unremarkable except as noted in HPI and below PMFSH Past Medical History Medical History Anxiety and depression Chronic constipation Chronic back pain Kidney stones Surgical History Surgical History H/O cystoscopy kidney stone removal Social History Social History Years smoked: 30 Smoking status: Current every day smoker Tobacco type: cigarettes Alcohol intake: never Substance use: never Do You Feel Safe in your Home?: Yes Lack of Transportation: No Lack of Food: Never True Current Housing: I Have Housing Concerned About Future Housing: No Difficulty Paying Gas/Electric Bills: No Difficulty Paying for Meds: No Currently Unemployed: No Education: Bachelor's Degree Difficulty w/ Childcare or Family Care: No Spiritual care concerns: No Exam Const: General: cooperative, healthy appearing, comfortable, no acute distress, well developed, alert, awake and Physically active Orientation/consciousness: oriented to person, oriented to place and oriented to time HENMT: Head: normal to inspection, normocephalic and atraumatic Ears: hearing grossly normal bilaterally and external ears normal Face/Nose/Sinus: Normal external nose present Other: Cracked back right upper molar with TTP at base as well as erythema Eyes: General: appearance normal, both eyes and all related structures Periorbital: periorbital findings normal Sclera: sclerae normal Pupils: Equal, round and reactive pupils present Other: fluorescein eye exam showed a small corneal abrasion at the 8'o'clock position Neck: Neck: normal visual inspection Chest: Chest palpation & inspection: normal inspection of the chest Resp: Effort & Inspection: normal respiratory effort, able to speak in complete sentences and no respiratory distress Cardio: Jugular venous distension: no JVD Skin: General skin exam: normal color and no rashes or lesions noted Neuro: General: oriented to person, oriented to place and oriented to time Cranial nerves: Yes Equal, round and reactive pupils present Extrem: General: normal to inspection Discharge Plan Discharge Clinical Impression: Corneal abrasion, Dental infection Patient Disposition: Home, Self-Care Condition: Stable Instructions: Corneal Abrasion (ED) Patient Language: Slovenian Prescriptions: New neomycin-polymyxin B-dexameth 3.5mg/mL-10,000 unit/mL-0.1 % drops,suspension 1 drp LEFT EYE Q6H Qty: 5 0RF amoxicillin-pot clavulanate [Augmentin] 500-125 mg tablet 1 tablet PO Q12H Qty: 10 0RF No Action hydrocodone-acetaminophen 5-325 mg tablet 1 tablet PO Q8H PRN (Reason: pain) Qty: 10 0RF diclofenac sodium 50 mg tablet,delayed release (DR/EC) 50 mg PO Q12H PRN (Reason: pain) Qty: 14 0RF Follow-up/Referrals: Terra,Michael Morales, POLICY ISSUE CLERK [Primary Care Provider] -
[2024-06-17] MEDS: FLUORESCEIN SOD 1 MG/STRIP EACH EYE (04:00)
[2024-06-17] MEDS: TETRACAINE HCL 0.5% OPHTH SOLN 4 ML BTL 1 DROP LEFT EYE (04:00)
== END 2024-06-17 04:06 | disposition home or self-care (01) ==
PROVIDERS: Emergency Provider Family Medicine; PCP Nurse Practitioner Family
DX: S05.02XA Injury of conjunctiva and corneal abrasion without foreign body, left eye, initial encounter (principal); K04.7 Periapical abscess without sinus; F17.210 Nicotine dependence, cigarettes, uncomplicated; X58.XXXA Exposure to other specified factors, initial encounter
CPT/HCPCS: 99283

== ENCOUNTER 2024-08-03 03:06 | Emergency (ER) | payer OTHER, SELFPAY ==
[2024-08-03 03:06] VITALS: BP 118/85; PULSE 98; RESP 16; TEMP 37.3; O2SAT 100
--- NOTE | 2024-08-03 03:08 | ED_ITS ---
HPI - Ear Problem General Chief complaint: Ear Stated complaint: L Ear Pain/drainage Time Seen by Provider: 08/03/24 03:07 Source: patient and family Mode of arrival: ambulatory Limitations: no limitations History of Present Illness HPI Narrative: Patient is a 39-year-old female with left ear pain for the past 3 days. no fever chills. No nausea vomiting or diarrhea. No abdominal pain. She has some arthralgias and aches and pains which she relates to an upcoming menstrual cycle. MD Complaint: ear pain and decreased hearing Location: left ear Duration: constant Severity: moderate Relieving factors: nothing Exacerbating factors: nothing Context: Reports other ( Patient is having worse left ear pain over the past 3 days with drainage) Discharge from ear: Reports yes - clear Associated symptoms ear: decreased hearing Treatment prior to arrival: none Related Data Allergies Allergy/AdvReac Type Severity Reaction Status Date / Time ethinyl estradiol (Seasonale Allergy Intermediate Unknown Verified 08/03/24 03:13 (91)) levonorgestrel (Seasonale Allergy Intermediate Unknown Verified 08/03/24 03:13 (91)) Review of Systems Review of Systems: All systems reviewed & are unremarkable except as noted in HPI and below Constitutional: Constitutional: Reports no additional constitutional complaints Eyes: Eyes: Reports no additional eye complaints ENT: Reports system reviewed and no additional complaints, except as documented Cardiovascular: Cardiovascular: Reports no additional cardiovascular complaints Respiratory: Respiratory: Reports no additional respiratory complaints Gastrointestinal: Gastrointestinal: Reports no additional gastrointestinal complaints Genitourinary: Genitourinary: Reports no additional female genitourinary complaints Musculoskeletal: Musculoskeletal: Reports no additional musculoskeletal complaints Integumentary/Breasts: Skin/Breast: Reports system reviewed and no additional complaints, except as docu Neurologic: Reports system reviewed and no additional complaints, except as documented Psychiatric: Psychiatric: Reports no additional psychiatric complaints Endocrine: Endocrine: Reports no additional endocrine complaints Hematologic/Lymphatic: Hematologic/Lymphatic: Reports no additional hematologic/lymphatic complaints Allergic/Immunologic: Allergic/Immunologic: Reports no additional allergic/immunologic complaints PMFSH Past Medical History Medical History Anxiety and depression Chronic constipation Chronic back pain Kidney stones Surgical History Surgical History H/O cystoscopy kidney stone removal Social History Social History Years smoked: 30 Smoking status: Current every day smoker Tobacco type: cigarettes Alcohol intake: never Substance use: never Do You Feel Safe in your Home?: Yes Lack of Transportation: No Lack of Food: Never True Current Housing: I Have Housing Concerned About Future Housing: No Difficulty Paying Gas/Electric Bills: No Difficulty Paying for Meds: No Currently Unemployed: No Education: Bachelor's Degree Difficulty w/ Childcare or Family Care: No Spiritual care concerns: No Exam Const: General: healthy appearing Nutritional Appearance: well nourished Orientation/consciousness: patient oriented x3 Limitations: no limitations HENMT: Head: normal to inspection Ears: external ears normal, TM's abnormal bilaterally, EAC's normal and TM abnormal ( right TM and canal are normal) Face/Nose/Sinus: Normal external nose present Face and sinus: normal facial exam Mouth: Yes Normal oral and palatal mucosa present Teeth and gingiva: dentition normal Throat: posterior oropharynx normal Other: left tympanic membrane has a perforation centrally and slightly red tympanic membrane with a normal auditory canal Eyes: Conjunctivae: conjunctivae normal Pupils: Equal, round and reactive pupils present EOM: EOMs intact bilaterally Direct Ophthalmoscopy: no photophobia Neck: Neck: normal visual inspection Chest: Chest palpation & inspection: normal inspection of the chest Resp: Effort & Inspection: normal respiratory effort and not labored Auscultation: clear to auscultation bilaterally and no crackles Cardio: Rate: regular rate Rhythm: regular rhythm Heart sounds: no murmurs GI: Inspection: non-distended GI Palp: Yes Soft to palpation and No Tenderness to palpation present (GI) Auscultation: normal bowel sounds : General: Yes bladder normal to palpation Back/Spine/Pelvis: Back: no CVA tenderness Skin: General skin exam: normal color Rashes: no rashes Wounds: no wounds Neuro: General: patient oriented x3 Cranial nerves: Yes Nystagmus not present Speech: normal speech Gait exam (Neuro): Normal gait present Extrem: General: normal to inspection Psych: Mental Status: mental status grossly normal Affect: Anxious affect present Attitude: cooperative Medical Decision Making MDM Narrative Medical decision making narrative: patient is a 39-year-old female with left ear pain over the past 3 days. She is having clear discharge. She has otitis media on the left with a perforation. ENT as needed. We will do antibiotics and drops. Reassurance this area should close over the next month and better hearing should occur. Discharge Plan Discharge Clinical Impression: Central perforation of tympanic membrane, left ear Otitis media Qualifiers: Otitis media type: unspecified Chronicity: acute Qualified Code(s): H66.90 - Otitis media, unspecified, unspecified ear Patient Disposition: Home, Self-Care Condition: Stable Instructions: Antibiotic Form, Earache (ED) Patient Language: [place] Islander Prescriptions: New ofloxacin 0.3 % drops 10 drp LEFT EAR DAILY 7 Days Qty: 5 0RF amoxicillin-pot clavulanate [Augmentin] 500-125 mg tablet 1 tablet PO BID 10 Days Qty: 20 0RF Follow-up/Referrals: Amos,Michael Morales, POWERTRAIN CONTROL SYSTEMS ENGINEER [Primary Care Provider] - Time of Disposition: 03:34
--- OUTSIDE RECORDS SUMMARY | 2024-08-03 03:09 | XMS_ITS | Patient Health Record ---
Author Organization [facility] Address [address] [place] [address] Care Team Providers Care Studio Technician Name Role Phone Isabella Mitchell Primary Care [...] Problem Status W/U Status Risk Notes Problem 542087879 Anxiety disorder , unspecified (F41.9) Active confirmed Problem 563080577 Other insomnia (G47.09) Active confirmed Problem 23278905 Constipation, unspecified constipation type (K59.00) Active confirmed Problem 941241723 Methamphetamine addiction (F15.20) Active confirmed Problem 69014632 DDD (degenerativ e disc disease), lumbosacral (M51.37) Active confirmed Problem 84577143 Night terrors (F51.4) Active confirmed Problem 77836366 Depression, unspecified (F32.A) Active confirmed Plan Of Treatment No Information Insurance Providers Payer Name Payer Address Payer Phone Subscriber Number Group Number Insured Name Patient Relationship to Insured Coverage Start Date Coverage End Date [place] [address] [place] [phone] [id number] Mirna Rojas Self - patient is the insured [employer] [address] [address] [place] [address] [phone] [id number] Mirna Rojas Self - patient is the insured Medical (General) History Medical History History ICD Code Anxiety and Depression PTSD Surgical History Surgery Date(Month/Year) Kidney stone 2020 right finger joint 2020 Hospitalization History Reason Date(Month/Year) Kidney stones 2020
--- OUTSIDE RECORDS SUMMARY | 2024-08-03 03:09 | XMS_ITS | Clinical Summary ---
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 Gender Identity Not on file Sexual Orientation [...] 2023 COVID-19 Vaccine (2023-2 5 season) 2023 HPV Vaccines Aged Out No longer eligi [...] this topic Medical Devices Implanted Type Area Paid Intern Device Identifier Shelf Expiration Date Model / Serial / Lot Stent Cook Ureteral Filaform 6 Fr X 24cm - Sn/A Implanted:Qty: 1 on 01/24/2020 by Murali Heard MD at [facility] Right: [employer] 10/14/2022 [id number] / N/A / [id number] [place] [address] [address] [place] [address] Advance Directives * Full Code (Latest Code Status on File) Date Activated Date Inactivated Comments 02/23/2020 2:58 PM 02/23/2020 6:05 PM * Full Code Date Activated Date Inactivated Comments 01/23/2020 11:16 PM 01/27/2020 2:30 PM Care Teams Keno Clerk Relationship Specialty Start Date End Date None, Provider, MD PCP - General UNKNOWN PHYSICIAN SPECIALTY 03/25/23
--- OUTSIDE RECORDS SUMMARY | 2024-08-03 03:09 | XMS_ITS | Encounter Summary ---
Author Organization [facility] Address [address] [place] [address] Care Team Providers Care Dietitian Consultant Name Role Phone Latrice Zazueta MD Primary Care Provider [phone] Clovis Vela MD Primary Care Provider [phone] None, Provider Primary Care Provider Unavaila ble Encounter Details Date Type Department Care Team (Late st Contact Info) Description 10/04/2018 Abstract SFL CONVERSION [address] [address] , Generic Conversion, Social History Tobacco Use Types Packs/Day Years Used Date Smoking Tobacco: Never Assessed Comments Unknown Sex and Gender Information Value Date Recorded Sex Assigned at Not on file 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 Gender Identity Not on file Sexual Orientation Not on file documented as of this encounter Plan of Treatment Not on file documented as of this encounter Visit Diagnoses Not on filedocumented in this encounter Additional Health Concerns Infection Onset Date Last Indicated Resolved Time COVID-19 Rule Out 02/20/2020 02/20/2020 02/21/2020 3:06 PM CDT documented as of this encounter Care Teams Dietitian Consultant Relationship Specialty [place] [address] [place], [place] [id number] PCP - General INTERNAL MEDICINE 04/24/19 02/18/20 [place] [address] [place] [address] PCP - General FAMILY PRACTICE 02/19/20 03/24/23 None, Provider, PCP - General UNKNOWN PHYSICIAN SPECIALTY 03/25/23 documented as of this encounter
--- OUTSIDE RECORDS SUMMARY | 2024-08-03 03:09 | XMS_ITS | Referral Summary ---
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
--- OUTSIDE RECORDS SUMMARY | 2024-08-03 03:09 | XMS_ITS | Encounter Summary ---
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
--- OUTSIDE RECORDS SUMMARY | 2024-08-03 03:09 | XMS_ITS ---
Author Organization [facility] Address [address] [place] [address] Care Team Providers Care Tube Laser Operator Name Role Phone Isabella Mitchell Primary Care Provider [phone] Encounters Encounter Location Date Provider Diagnosis [facility] [address] [place] [address] 04/10/2023 Isabella Mitchell Plan Of Treatment No Information Progress Notes * Mirna ROJASDOB:[birth year] (37 yo F)Acc No.[id number]:04/10/2023 Patient: Mirna Youngblood :1985 A ge:37 Y S ex:Female Address:[address] [place] [address] * true * Date: Generated for Amos johnson/Yazmin/eTransmitting on: 0 08/03/2024 03:09 AM CDT
--- OUTSIDE RECORDS SUMMARY | 2024-08-03 03:09 | XMS_ITS | Clinical Summary ---
Author Organization 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
--- OUTSIDE RECORDS SUMMARY | 2024-08-03 03:09 | XMS_ITS ---
Author Organization [facility] Address [address] [place] [address] Care Team Providers Care Mortgage Processing Manager Name Role Phone Isabella Mitchell Primary Care [...] Problem Status W/U Status Risk Notes Problem 840375600 Methamphetamine addiction (F15.20) Active confirmed Problem 020328989 Anxiety disorder , unspecified (F41.9) Active confirmed Problem 28252409 Depression, unspecified (F32.A) Active confirmed Problem 98428211 DDD (degenerativ e disc disease), lumbosacral (M51.37) Active confirmed Problem 06701304 Constipation, unspecified constipation type (K59.00) Active confirmed Problem 12573231 Night terrors (F51.4) Active confirmed Problem 200671188 Other insomnia (G47.09) Active confirmed Vital Signs [...] 04/09/2023 Encounters Encounter Location Date Provider Diagnosis [address] [address] 04/09/2023 Isabella Mitchell Methamphetamine addiction F15.20 ; [...] * Mirna ROJASDOB:[birth year] (37 yo F)Acc No.[id number]:04/09/2023 Progress Notes Patient: Mirna Youngblood Provider: Noelle Mitchell :1985 A ge:37 Y S ex:Female Date:04/09/2023 Address:[address] [place], [place] [id number] Check In:01:57 PM CSTCheck O ut:02:42 PM SPINNING AND WINDING SUPERVISOR Subjective: * Chief Complaints: * e st. care- Medication refills * HPI: N ew/Follow-up Patient Consult: Jannet is a 37-year old female with a PMHx of Methamphetamine addiction, DDD, PTSD, depression and anxiety, constipation, and insomnia is presenting to the clinic at [facility] for medication adjustments and prescriptions. She reports she was at [facility] for 1 week and then here at [facility] for 3 weeks. She presents for refills [...] ull time D o you understand spoken cook islander? Y es C ommunication needs (hearing, visual [...] Vitals: Wt 151 lbs 04/09/2023 02:29:01 PM SPINNING AND WINDING SUPERVISOR Wt-kg* 68.49 kg 04/09/2023 02:29:01 PM SPINNING AND WINDING SUPERVISOR Alexandra F orrester BURRER MACHINE Ht* 65 in 04/09/2023 02:29:01 PM SPINNING AND WINDING SUPERVISOR Alexandra F orrester BURRER MACHINE Ht-cm* 165.1 cm 04/09/2023 02:29:01 PM SPINNING AND WINDING SUPERVISOR Alexandra F orrester BURRER MACHINE BMI* 25.12 Index 04/09/2023 02:29:01 PM SPINNING AND WINDING SUPERVISOR Alexandra F orrester BURRER MACHINE BP* 112/72 mm Hg 04/09/2023 02:29:01 PM SPINNING AND WINDING SUPERVISOR Alexandra F orrester BURRER MACHINE Temp* 97 F 04/09/2023 02:29:01 PM SPINNING AND WINDING SUPERVISOR Alexandra F orrester BURRER MACHINE HR* 98 /min 04/09/2023 02:29:01 PM SPINNING AND WINDING SUPERVISOR Alexandra F orrester BURRER MACHINE RR* 18 /min 04/09/2023 02:29:01 PM SPINNING AND WINDING SUPERVISOR Alexandra F orrester BURRER MACHINE Oxygen sat %* 98 % 04/09/2023 02:29:01 PM SPINNING AND WINDING SUPERVISOR Alexandra F orrester BURRER MACHINE * Examination: G eneral Examination: GENERAL APPEARANCE: [...] epression, unspecified - F32.A 4 . B [place] 25.0-25.9,adult - Z68.25 5 .?Exercise counseling - [...] Procedure Codes: G 8431 CLIN DEPRESSION SCREEN [id number] Pt scrn tbco and id as [id number] Pt recv tbco cess interv * Preventive Medicine: YOUR PREVENTIVE WELLNESS PLAN: O ral Health: The recommended frequency for dental check-ups is: e very 6 months Last dental check-up was: m ore than a year ago Intervention: e ncouraged pt to make appointment with their dentist or with a dentist at [facility] Education handouts provided: L earning about Dental [...] urged to quit. 1 06/10/2022 * * NING AND WINDING SUPERVISOR Sign off status: Completed Visit Status: C HK (Check Out) true * Provider: Noelle Mitchell Date: 1 06/10/2022 Generated for Amos johnson/Yazmin/Keith on: 0 08/03/2024 03:09 AM CDT History and Physical Notes * HPI (History [...]
[2024-08-03] MEDS: AMOXICILLIN/CLAVULANATE K 500-125 MG TAB 1 TABLET PO (03:30)
== END 2024-08-03 03:47 | disposition home or self-care (01) ==
PROVIDERS: Emergency Provider Emergency Medicine; PCP Nurse Practitioner Family
DX: H72.92 Unspecified perforation of tympanic membrane, left ear (principal); H66.90 Otitis media, unspecified, unspecified ear; F17.210 Nicotine dependence, cigarettes, uncomplicated
CPT/HCPCS: 99283; A9270

== ENCOUNTER 2024-10-16 16:01 | Emergency (ER) | payer OTHER, SELFPAY ==
[2024-10-16 16:05] VITALS: BP 132/87; PULSE 87; RESP 16; TEMP 36.7; O2SAT 100
--- NOTE | 2024-10-16 16:08 | PC.NURSE ---
pt went out to parking lot to inform ride she was going to have to do full workup.
--- NOTE | 2024-10-16 16:14 | PC.NURSE ---
pt eloped without being seen by provider. watched pt walk to a [employer] suv and get into passenger side of suv. then seen pt depart parking lot in suv. did not return to er.
== END 2024-10-16 16:14 | disposition left against medical advice (07) ==
PROVIDERS: Emergency Provider Emergency Medicine; PCP Nurse Practitioner Family
DX: R10.32 Left lower quadrant pain (principal)
CPT/HCPCS: 99199

== ENCOUNTER 2024-10-26 19:44 | Emergency (ER) | payer OTHER, SELFPAY ==
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
--- OUTSIDE RECORDS SUMMARY | 2024-10-26 19:46 | XMS_ITS | Clinical Summary ---
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 Gender Identity Not on file Sexual Orientation [...] 2:45 AM CDT Height 162.6 cm (5' 4) 11/09/2023 2:45 AM CDT Body Mass Index 20.6 11/09/2023 2:45 AM CDT Plan of Treatment Health Maintenance Due Date Last Done Comments Cervical Cancer Screening Pa p Smear (Age 30 to 64) Every 3 Years 1983 Annual Physical 1986 Hepatitis C 2001 Hepatitis B Vaccines (1 of 3 - 19+ 3-dose series) 2002 Pneumococcal Vaccine: Pediat rics (0 to 5 Years) and At-Risk Patients (6 to 49 Years) (1 of 2 - PCV) 2002 Cervical Cancer Screening Pa p with HPV Testing (Age 30 to 64) Every 5 Years 2013 Cervical Cancer Screening with HPV 2013 DTaP, Tdap and Td Vaccines ( 2 - Td or Tdap) 05/18/2020 05/18/2010 Mammogram Screening 2023 COVID-19 Vaccine ( - 2023-2 5 season) 2023 HPV Vaccines Aged Out [...] this topic Medical Devices Implanted Type Area Toolroom Checker Device Identifier Shelf Expiration Date Model / Serial / Lot Stent Cook Ureteral Filaform 6 Fr X 24cm - Sn/A Implanted:Qty: 1 on 01/24/2020 by Murali Heard MD at [facility] Right: Ureter [employer] 10/14/2022 [id number] / N/A / [id number] Insurance Advance Directives * Full Code (Latest Code Status on File) Date Activated Date Inactivated Comments 02/23/2020 2:58 PM 02/23/2020 6:05 PM * Full Code Date Activated Date Inactivated Comments 01/23/2020 11:16 PM 01/27/2020 2:30 PM Care Teams Photographic Supervisor Relationship Specialty Start Date End Date None, Provider, MD PCP - General UNKNOWN PHYSICIAN SPECIALTY 03/25/23
--- OUTSIDE RECORDS SUMMARY | 2024-10-26 19:46 | XMS_ITS ---
Author Organization Unknown Plan of Treatment Description Planned Activity Planned Timing [facility] is a provider organization who partners directly with Health Plans and provides integrated primary care, behavioral health, and social media marketing manager for an attributed population Letter encounter to patientTelephone encounter Oct 22, 2024Jul 2024 Patient Care team information Name Category Status Period Participants - - Proposed period not known -
--- OUTSIDE RECORDS SUMMARY | 2024-10-26 19:46 | XMS_ITS | Encounter Summary ---
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
--- OUTSIDE RECORDS SUMMARY | 2024-10-26 19:46 | XMS_ITS | Encounter Summary ---
Author Organization [facility] Address Count includes the [facility] [place] [address] Care Team Providers Care Capsule Maker Name Role Phone Latrice Zazueta MD Primary Care Provider [phone] Clovis Vela MD Primary Care Provider [phone] None, Provider Primary Care Provider Unavaila ble Encounter Details Date Type Department Care Team (Late st Contact Info) Description 10/04/2018 Abstract SFL CONVERSION [address] [address] , Generic Conversion, Social History Tobacco Use Types Packs/Day Years Used Date Smoking Tobacco: Never Assessed Comments Unknown Sex and Gender Information Value Date Recorded Sex Assigned at Not on file 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 Gender Identity Not on file Sexual Orientation Not on file documented as of this encounter Plan of Treatment Not on file documented as of this encounter Visit Diagnoses Not on filedocumented in this encounter Additional Health Concerns Infection Onset Date Last Indicated Resolved Time COVID-19 Rule Out 02/20/2020 02/20/2020 02/21/2020 3:06 PM CDT documented as of this encounter Care Teams Capsule Maker Relationship Specialty [place] [address] [place], [place] [id number] PCP - General INTERNAL MEDICINE 04/24/19 02/18/20 [place] [address] PCP - General FAMILY PRACTICE 02/19/20 03/24/23 None, Provider, PCP - General UNKNOWN PHYSICIAN SPECIALTY 03/25/23 documented as of this encounter
[2024-10-26 19:47] VITALS: BP 150/103; PULSE 88; RESP 18; TEMP 36.5; O2SAT 100
--- OUTSIDE RECORDS SUMMARY | 2024-10-26 19:47 | XMS_ITS | Patient Health Record ---
Author Organization [facility] Address [address] [place] [address] Care Team Providers Care Director Career Name Role Phone Isabella Mitchell Primary Care Provider [phone] Allergies No Known Allergies Reason For Referral No Information Medications Medication SIG (Take, Route, Frequency, Duration) Notes Start Date End Date Status Sertraline HCl 50 MG 1 tablet Orally Onc e a day at HS; Duration: 30 days 04/09/2023 Active Lidocaine 5 % [...] many cigarettes a day do you smoke? 03-18 Alcohol Screen (Audit-C) Question Answer Notes Did [...] Problem Status W/U Status Risk Notes Problem Anxiety disorder (779865451) Anxiety disorder, unspecified (F41.9) Active confirmed Problem Insomnia (142552416) Other insomnia (G47.09) Active confirmed Problem Constipation (30134607) Constipation, unspecified constipation type (K59.00) Active confirmed Problem Methamphetamine dependence (086457104) Methamphetamine addiction (F15.20) Active confirmed Problem Degeneration of lumbosacral intervertebral disc (33565923) DDD (degenerative disc disease), lumbosacral (M51.37) Active confirmed Problem Night terrors (11150228) Night terrors (F51.4) Active confirmed Problem Depression (487862832) Depression, unspecified (F32.A) Active confirmed Plan Of Treatment No Information Insurance Providers Payer Name Payer Address Payer Phone Subscriber Number Group Number Insured Name Patient Relationship to Insured Coverage Start Date Coverage End Date [place] [address] [place] [address] [id number] Mirna Rojas Self - patient is the insured [employer] [address] [address] [place] [address] [id number] Mirna Rojas Self - patient is the insured Medical (General) History Medical History History ICD Code Anxiety and Depression PTSD Surgical History Surgery Date(Month/Year) Kidney stone 2020 right finger joint 2020 Hospitalization History Reason Date(Month/Year) Kidney stones 2020
--- OUTSIDE RECORDS SUMMARY | 2024-10-26 19:47 | XMS_ITS | Referral Summary ---
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
--- OUTSIDE RECORDS SUMMARY | 2024-10-26 19:47 | XMS_ITS | Clinical Summary ---
Author Organization 

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
--- OUTSIDE RECORDS SUMMARY | 2024-10-26 20:07 | XMS_ITS | Referral Summary ---
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
--- OUTSIDE RECORDS SUMMARY | 2024-10-26 20:07 | XMS_ITS | Clinical Summary ---
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 Gender Identity Not on file Sexual [...] this topic Medical Devices Implanted Type Area First Dyer Device Identifier Shelf Expiration Date Model / Serial / Lot Stent Cook Ureteral Filaform 6 Fr X 24cm - Sn/A Implanted:Qty: 1 on 01/24/2020 by Murali Heard MD at [facility] Right: Ureter [employer] 10/14/2022 [id number] / [id number] / [id number] Insurance Advance Directives * Full Code (Latest Code Status on File) Date Activated Date Inactivated Comments 02/23/2020 2:58 PM 02/23/2020 6:05 PM * Full Code Date Activated Date Inactivated Comments 01/23/2020 11:16 PM 01/27/2020 2:30 PM Care Teams Zoology Professor Relationship Specialty Start Date End Date None, Provider, MD PCP - General UNKNOWN PHYSICIAN SPECIALTY 03/25/23
--- OUTSIDE RECORDS SUMMARY | 2024-10-26 20:07 | XMS_ITS | Encounter Summary ---
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
--- OUTSIDE RECORDS SUMMARY | 2024-10-26 20:07 | XMS_ITS | Clinical Summary ---
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
--- OUTSIDE RECORDS SUMMARY | 2024-10-26 20:07 | XMS_ITS | Encounter Summary ---
Author Organization [facility] Address [facility] [place] [address] Care Team Providers Care Innovation Manager Name Role Phone Latrice Zazueta MD Primary Care Provider [phone] Clovis Vela MD Primary Care Provider [phone] None, Provider Primary Care Provider Unavaila ble Encounter Details Date Type Department Care Team (Late st Contact Info) Description 10/04/2018 Abstract SFL CONVERSION [address] [place] [address] , Generic Conversion, Social History Tobacco Use Types Packs/Day Years Used Date Smoking Tobacco: Never Assessed Comments Unknown Sex and Gender Information Value Date Recorded Sex Assigned at Not on file 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 Gender Identity Not on file Sexual Orientation Not on file documented as of this encounter Plan of Treatment Not on file documented as of this encounter Visit Diagnoses Not on filedocumented in this encounter Additional Health Concerns Infection Onset Date Last Indicated Resolved Time COVID-19 Rule Out 02/20/2020 02/20/2020 02/21/2020 3:06 PM CDT documented as of this encounter Care Teams Innovation Manager Relationship Specialty Start [place] [address] [place], [place] [id number] PCP - General INTERNAL MEDICINE 04/24/19 02/18/20 [place] [address] PCP - General FAMILY PRACTICE 02/19/20 03/24/23 None, Provider, PCP - General UNKNOWN PHYSICIAN SPECIALTY 03/25/23 documented as of this encounter
--- NOTE | 2024-10-26 20:09 | PC.NURSE ---
PATIENT TAKEN TO RADIOLOGY
--- NOTE | 2024-10-26 20:35 | PC.NURSE ---
PATIENT RETURNED TO ROOM FROM IMAGING. PATIENT WAS THEN SENT TO BATHROOM TO GIVE URINE SAMPLE.
[2024-10-26] MEDS: SODIUM CHLORIDE 0.9% IV 1,000 ML 999 ML IV CONT (20:48)
[2024-10-26 20:55] LABS: Basophils Absolute Auto 0.04 K/mm3 (0.00-0.10); Basophils Percent Auto 0.4 % (0.0-1.0); Eosinophils Absolute Auto 0.13 K/mm3 (0.02-0.50); Eosinophils Percent Auto 1.2 % (1.0-6.0); Hematocrit 42.8 % (35.0-49.0); Hemoglobin 13.6 g/dL (12.0-15.0); Immature Granulocyte Absolute 0.06 K/mm3 (0.00-0.00); Immature Granulocyte Percent A 0.5 % (0.0-0.0); Lymphocytes Absolute Auto 1.71 K/mm3 (1.10-4.50); Lymphocytes Percent Auto 15.3 % (18.0-42.0); Mean Corpuscular HGB Conc 31.8 g/dL (32-36); Mean Corpuscular Hemoglobin 29.4 pg (27.0-31.0); Mean Corpuscular Volume 92.6 fL (78.0-102.0); Mean Platelet Volume 10.1 fl (9.2-11.8); Monocytes Absolute Auto 0.61 K/mm3 (0.10-0.90); Monocytes Percent Auto 5.5 % (2.0-11.0); Neutrophils Percent Auto 77.1 % (50.0-70.0); Platelet Count Result 308 K/mm3 (150-420); Red Blood Count 4.62 M/mm3 (4.20-5.40); Red Cell Distribution Width 13.9 % (11.6-14.4); White Blood Count 11.2 K/mm3 (4.8-10.8)
[2024-10-26 21:00] LABS: Add Urine Microscopic? YES; Appearance Urine Clear (Clear); Bilirubin Urine Negative (Negative); Blood Urine Negative (Negative); Color Urine Light Yellow (Yellow); Glucose Urine UA Negative (Negative); Ketones Urine Negative (Negative); Leukocyte Esterase Ur 1+ LEU/UL (Negative); Nitrate Urine Negative (Negative); Protein Urine Trace (Negative); Urobilinogen Urine 0.2 mg/dL (0.2-1.0); pH Urine 8.5 (5.0-8.0)
[2024-10-26 21:02] LABS: Pregnancy On Board Control Positive; Urine Pregnancy Test Negative
[2024-10-26 21:15] LABS: Amorphous Sediment Urine Moderate; Bacteria Urine 3+ /hpf; RBC Urine 0-2 /hpf (0-2); Squamous Epithelial Cell Urine Few /hpf (Few); WBC Urine 21-30 /hpf (0-3)
[2024-10-26 21:19] LABS: Alanine Aminotransferase 18 U/L (6-35); Albumin Level 4.4 g/dL (3.5-5.1); Alkaline Phosphatase 66 U/L (38-126); Anion Gap 4 mmol/L (4-12); Aspartate Amino Transferase 24 U/L (14-36); Bilirubin,Total 0.3 mg/dL (0.2-1.3); Blood Urea Nitrogen 14 mg/dL (7-17); Calcium 8.7 mg/dL (8.4-10.2); Carbon Dioxide 33 mmol/L (22-30); Chloride 102 mmol/L (98-107); Estimated CRCL calculation 70 ml/min; Estimated Glomerular Filt Rate > 60; Glucose 91 mg/dL (65-110); Lipase 69 U/L (23-300); Osmolality Calculated 288 mOsm/kg (285-295); Potassium 3.8 mmol/L (3.4-5.0); Sodium 139 mmol/L (137-145); Total Protein 7.6 g/dL (6.3-8.2)
[2024-10-26 21:37] LABS: Amphetamine Screen Urine Positive (Negative); Barbiturate Screen Urine Negative (Negative); Benzodiazepines Screen Urine Negative (Negative); Cannabinoid Screen Urine Positive (Negative); Cocaine Screen Urine Negative (Negative); Methadone Screen Urine Negative (Negative); Opiate Screen Urine Negative (Negative); Phencyclidine Screen Urine Negative (Negative)
[2024-10-26] MEDS: NICOTINE (*PBKC) 21 MG PATCH 1 PATCH TRANSDERM (21:52)
--- NOTE | 2024-10-26 22:18 | PC.NURSE ---
PATIENT IS RESTING ON STRETCHER. DENIES ANY NEEDS AT THIS TIME. CALL LIGHT IN REACH. PATIENT HAS HAD SEVERAL ROUNDS OF EDUCATION GIVEN TO HER.
--- NOTE | 2024-10-26 22:27 | PC.NURSE ---
PATIENT WAS TOLD THAT ALL HER IMAGING WAS NEGATIVE. PATIENT CURSING AND STATES THIS CANT JUST BE FROM A UTI. I HURT TOO BAD FOR THIS. AND NOW I AM GONNA LAY ON THE HARD FLOOR. I WONT BE ABLE TO GET UP IN THE MORNING. PATIENT THEN GOT UP AND WENT TO THE BATHROOM
[2024-10-26 22:29] VITALS: BP 142/88; PULSE 76; RESP 18; O2SAT 100
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
--- NOTE | 2024-10-29 12:40 | PC.NURSE ---
preliminary urine culture report reviewed, >100,000 e. coli
--- NOTE | 2024-10-30 15:08 | PC.NURSE ---
urine culture final , e coli--no change needed, rx macrobid.
== END 2024-10-26 22:29 | disposition home or self-care (01) ==
PROVIDERS: Emergency Provider Emergency Medicine; PCP Physician Assistant
DX: S00.83XA Contusion of other part of head, initial encounter (principal); F15.10 Other stimulant abuse, uncomplicated; N39.0 Urinary tract infection, site not specified; F17.210 Nicotine dependence, cigarettes, uncomplicated; Y04.2XXA Assault by strike against or bumped into by another person, initial encounter
CPT/HCPCS: 36415; 70450; 70486; 71045; 72072; 72100; 72125; 73502; 74177; 80053; 80307; 81001; 81025; 83690; 85025; 87077; 87086; 87088; 87186; 96360; 99284; A9270; J7030; Q9967